=== PATIENT | male | born 1975 ===

== ENCOUNTER 2017-10-28 10:26 | Inpatient (IN) | payer MEDICAID ==
[2017-10-28] MEDS ORDERED: Sodium Chloride 0.9% 1,000 ML ONE (11:13)
[2017-10-28] MEDS ORDERED: Sodium Chloride 0.9% 1,000 ML IV ONE ×2 (11:17→12:00)
[2017-10-28 11:29] LABS: BASO # 0.1 K/uL (0.0-0.2); BASO % 0.4 % (0.0-2.0); EOS % 0.1 % (0.0-4.0); HEMOGLOBIN 14.2 g/dL (12.0-18.0); LYMPH # 1.6 K/uL (1.0-4.3); LYMPH % 8.4 % (20.0-40.0); MEAN CELL VOLUME 83.6 fL (80.0-94.0); MEAN CORPUSCULAR HEMOGLOBIN 28.3 pg (27.0-31.0); MEAN CORPUSCULAR HGB CONC 33.9 g/dL (33.0-37.0); MEAN PLATELET VOLUME 10.1 fL (7.2-11.7); MONO % 5.5 % (0.0-10.0); NEUT # 16.4 K/uL (1.8-7.0); NEUT % 85.6 % (50.0-75.0); PLATELET COUNT 218 K/uL (130-400); RBC 5.03 Mil/uL (4.40-5.90); RED CELL DISTRIBUTION WIDTH 13.8 % (11.5-14.5); WHITE BLOOD COUNT 19.1 K/uL (4.8-10.8)
[2017-10-28 11:44] LABS: INR 0.8; PROTHROMBIN TIME 9.5 SECONDS (9.7-12.2)
[2017-10-28 11:48] LABS: VENOUS BLOOD GAS BASE EXCESS -2.6 mmol/L (0.0-2.0); VENOUS BLOOD GAS PCO2 46 mmHg (40-60); VENOUS BLOOD GAS PO2 42 mm/Hg (30-55); VENOUS BLOOD PH 7.32 (7.32-7.43)
[2017-10-28 11:54] LABS: LYMPHOCYTE 6 % (20-40); MONOCYTE 7 % (0-10); NEUTROPHIL 87 % (50-75); PLATELET ESTIMATE NORMAL (NORMAL); TOTAL CELLS COUNTED 100
--- NOTE | 2017-10-28 12:32 | C.PDOC ---
History Of Present Illness 42 y/o male, w/PMhx of diarrhea, presents to the ER complaining of abdominal pain, nausea, vomiting,and diarrhea which began in the morning today. Patient states that he was vomiting red and dark brown -colored blood. Patient denies having fever, chills, and other complaints. Time Seen by Provider: 10/28/17 10:46 Chief Complaint (Nursing): GI Problem History Per: Patient History/Exam Limitations: no limitations Onset/Duration Of Symptoms: Days Current Symptoms Are (Timing): Still Present Severity: Moderate Associated Symptoms: Nausea, Vomiting, Diarrhea. denies: Fever, Chills Past Medical History Reviewed: Historical Data, Nursing Documentation, Vital Signs Vital Signs: Last Vital Signs Temp 97.9 F 10/28/17 16:20 Pulse 108 H 10/28/17 16:20 Resp 16 10/28/17 16:20 BP 167/98 H 10/28/17 16:20 Pulse Ox 100 10/28/17 16:28 - Medical History PMH: Anxiety Surgical History: No Surg Hx Family History: States: No Known Family Hx - Social History Hx Alcohol Use: No Hx Substance Use: Yes - Immunization History Hx Tetanus Toxoid Vaccination: No Hx Influenza Vaccination: No Hx Pneumococcal Vaccination: No Review Of Systems Except As Marked, All Systems Reviewed And Found Negative. Gastrointestinal: Positive for: Nausea, Vomiting, Abdominal Pain, Diarrhea Physical Exam - Physical Exam Appears: Non-toxic, No Acute Distress Skin: Normal Color, Warm Head: Atraumatic, Normacephalic Eye(s): bilateral: Normal Inspection Nose: Normal Oral Mucosa: Moist Neck: Supple Chest: Symmetrical Cardiovascular: Rhythm Regular, No Murmur Respiratory: Normal Breath Sounds, No Rales, No Rhonchi, No Wheezing Gastrointestinal/Abdominal: Soft, Tenderness (epigastric tenderness), No Guarding, No Rebound Neurological/Psych: Oriented x3, Normal Speech ED Course And Treatment - Laboratory Results Result Diagrams: 10/28/17 11:25 10/28/17 11:56 ECG Rhythm: Sinus Tachycardia Interpretation Of ECG: Sinus Tachycardia at rate 104bpm. Normal Intervals. Normal [place]. LVH. T-wave inversions at V2-V3. Rate From EC O2 Sat by Pulse Oximetry: 100 (RA) Pulse Ox Interpretation: Normal - Radiology CXR: Interpreted by Me, Viewed By Me CXR Interpretation: Yes: No Acute Disease - CT Scan/US CT-Abd & Pelv. Other Rad Studies (CT/US): Read By Radiologist, Radiology Report Reviewed CT/US Interpretation: PROCEDURE: CT Abdomen and Pelvis with contrast. HISTORY : abd. pain. COMPARISON: None. TECHNIQUE: Contrast dose: 100 mL Visipaque 320. Radiation dose: Total exam DLP = 228.51 mGy-cm. This CT exam was performed using one or more of the following dose reduction techniques: Automated exposure control, adjustment of the mA and/or kV according to patient size, and/or use of iterative reconstruction technique. FINDINGS: LOWER THORAX : Unremarkable. LIVER: Unremarkable. No gross lesion or ductal dilatation. GALLBLADDER AND BILE DUCTS: Unremarkable. PANCREAS: Unremarkable. No gross lesion or ductal dilatation. SPLEEN: Unremarkable. ADRENALS: Unremarkable. No mass. KIDNEYS AND URETERS: Unremarkable. No hydronephrosis. No solid mass. VASCULATURE: Unremarkable. No aortic aneurysm. BOWEL: Mild diffuse circumferential mural thickening of the: Including the rectum. This is consistent with nonspecific colitis. No bowel obstruction. No other abnormal bowel loops are identified. APPENDIX: Not identified. No secondary findings. PERITONEUM: Unremarkable. No free fluid. No free air. LYMPH NODES: Unremarkable. No enlarged lymph nodes. BLADDER: Unremarkable. REPRODUCTIVE: Normal prostate. BONES: No acute fracture. OTHER FINDINGS: None. IMPRESSION : Mild diffuse circumferential mural thickening of the colon consistent with nonspecific colitis. The remainder of the examination is unremarkable. Medical Decision Making Medical Decision Making: Plan: --Labs --CXR --CT-Abd & Pelv. --Tylenol PO --Protonix PO --IV Fluids Updates: Patient has been admitted to Med Surg for hyperglycemia, GI bleed, and colitis. Disposition Discussed With : Aleksandar Harry Counseled Patient/Family Regarding: Studies Performed, Diagnosis - Disposition Disposition: HOSPITALIZED Disposition Time: 16:10 Condition: FAIR - Clinical Impression Clinical Impression: Hyperglycemia, GI bleed, Colitis - Scribe Statement The provider has reviewed the documentation as recorded by the Zackary Moreno Provider Attestation: All medical record entries made by the Aniibe were at my direction and personally dictated by me. I have reviewed the chart and agree that the record accurately reflects my personal performance of the history, physical exam, medical decision making, and the department course for this patient. I have also personally directed, reviewed, and agree with the discharge instructions and disposition.
[2017-10-28 12:50] LABS: ALB/GLOB RATIO 1.2 (1.0-2.1); ALBUMIN 3.4 g/dL (3.5-5.0); ALT/SGPT 41 U/L (21-72); AST/SGOT 43 U/L (17-59); BLOOD UREA NITROGEN 17 mg/dL (9-20); CALCIUM 8.9 mg/dl (8.6-10.4); GFR AFRICAN-AMERICAN > 60; GFR NON-AFRICAN AMERICAN > 60; LIPASE 121 U/L (23-300)
--- NOTE | 2017-10-28 13:04 | RAD ---
PROCEDURE: CHEST RADIOGRAPH, 1 VIEW HISTORY: Abdominal pain. COMPARISON: None available. FINDINGS: LUNGS: Clear. PLEURA: No pneumothorax or pleural fluid seen. CARDIOVASCULAR: Normal. OSSEOUS STRUCTURES: No significant abnormalities. VISUALIZED UPPER ABDOMEN: Normal. OTHER FINDINGS: None. IMPRESSION: No active disease.
[2017-10-28 13:26] LABS: URINE BACTERIA RARE (<OCC); URINE BILIRUBIN NEGATIVE (NEGATIVE); URINE BLOOD 1+ (NEGATIVE); URINE CLARITY Clear (Clear); URINE COLOR Colorless (YELLOW); URINE GLUCOSE (UA) 3+ mg/dL (Normal); URINE LEUKOCYTE ESTERASE NEG Leu/uL (Negative); URINE PROTEIN 3+ mg/dL (NEGATIVE); URINE UROBILINOGEN NORMAL mg/dL (0.2-1.0)
[2017-10-28] MEDS ORDERED: Iodixanol 320 MG/ML 100 ML BOTTLE IV ONE (14:13)
[2017-10-28] MEDS ORDERED: (Novolin R) Insulin Human Regular 100 units/ml vial IV ONE (15:20)
--- NOTE | 2017-10-28 15:29 | CT ---
PROCEDURE: CT Abdomen and Pelvis with contrast HISTORY: abd. pain COMPARISON: None. TECHNIQUE: Contrast dose: 100 mL Visipaque 320 Radiation dose: Total exam DLP = 228.51 mGy-cm. This CT exam was performed using one or more of the following dose reduction techniques: Automated exposure control, adjustment of the mA and/or kV according to patient size, and/or use of iterative reconstruction technique. FINDINGS: LOWER THORAX: Unremarkable. LIVER: Unremarkable. No gross lesion or ductal dilatation. GALLBLADDER AND BILE DUCTS: Unremarkable. PANCREAS: Unremarkable. No gross lesion or ductal dilatation. SPLEEN: Unremarkable. ADRENALS: Unremarkable. No mass. KIDNEYS AND URETERS: Unremarkable. No hydronephrosis. No solid mass. VASCULATURE: Unremarkable. No aortic aneurysm. BOWEL: Mild diffuse circumferential mural thickening of the: Including the rectum. This is consistent with nonspecific colitis. No bowel obstruction. No other abnormal bowel loops are identified. APPENDIX: Not identified. No secondary findings. PERITONEUM: Unremarkable. No free fluid. No free air. LYMPH NODES: Unremarkable. No enlarged lymph nodes. BLADDER: Unremarkable. REPRODUCTIVE: Normal prostate BONES: No acute fracture. OTHER FINDINGS: None. IMPRESSION: Mild diffuse circumferential mural thickening of the colon consistent with nonspecific colitis. The remainder of the examination is unremarkable.
[2017-10-28] MEDS ORDERED: (Novolin R) Insulin Human Regular 100 units/ml vial ONE (15:30)
[2017-10-28] MEDS ORDERED: Ciprofloxacin 400mg/200ml D5W 400 MG/200 ML BAG IVPB STA (16:05)
[2017-10-28] MEDS ORDERED: metroNIDAZOLE IV 500 mg/100 ml 500 MG/100 ML BAG IVPB STA (16:06)
[2017-10-28] MEDS ORDERED: Ciprofloxacin 400mg/200ml D5W 400 MG/200 ML BAG IVPB ONE (16:17)
[2017-10-28] MEDS ORDERED: metroNIDAZOLE IV 500 mg/100 ml 500 MG/100 ML BAG ONE (16:17)
[2017-10-28] MEDS: Sodium Chloride 0.9% 1,000 ML IV SCH (18:45)
[2017-10-28] MEDS ORDERED: Morphine 4 MG/ML VIAL SC PRN (20:43)
[2017-10-28] MEDS ORDERED: Nitroglycerin 2% Ointment Foilpak UD TOP ONE (20:45)
[2017-10-28 21:00] LABS: BLOOD UREA NITROGEN 16 mg/dL (9-20); CALCIUM 8.4 mg/dl (8.6-10.4); GFR AFRICAN-AMERICAN > 60; GFR NON-AFRICAN AMERICAN > 60
[2017-10-28] MEDS ORDERED: (Novolog) Insulin Aspart, Recombinant 100 u/ml 10 ml vial SC STA (21:17)
[2017-10-28] MEDS: metroNIDAZOLE IV 500 mg/100 ml 500 MG/100 ML BAG IVPB SCH (21:19)
[2017-10-28] MEDS ORDERED: (Novolog) Insulin Aspart, Recombinant 100 u/ml 10 ml vial SC SCH (22:00)
[2017-10-28] MEDS ORDERED: (Lantus) Insulin Glargine, Recombinant SC SCH (22:00)
--- NOTE | 2017-10-28 23:05 | CP.PCM.HP ---
History of Present Illness - History of Present Illness History of Present Illness: CC: weakness History Of Present Illness 42 y/o male, w/PMhx of insulin dependent diabetes since childhood, presents to the ER complaining of abdominal pain, nausea, vomiting,and diarrhea associated with weakness and lethargy, his complaince to medication is questionable which began in the morning today. Patient states that he was vomiting red and dark brown -colored blood. Patient denies having fever, chills , and other complaints.Pt was found to be in DKA and admitted treatment started Present on Admission - Present on Admission Any Indicators Present on Admission: Yes History of Uncontrolled Diabetes: Yes Review of Systems - Review of Systems Systems not reviewed;Unavailable: Acuity of Condition - Constitutional Constitutional: Fatigue, Lethargy, Weakness - EENT Eyes: absent: As Per HPI, Blind Spots, Blurred Vision, Change in Vision, Decreased Night Vision, Diplopia, Discharge, Dry Eye, Exophthalmos, Floaters, Irritation, Itchy Eyes, Loss of Peripheral Vision, Pain, Photophobia, Requires Corrective Lenses, Sees Flashes, Spots in Vision, Tunnel Vision, Other Visual Disturbances, Loss of Vision, Other Nose/Mouth/Throat: absent: As Per HPI, Epistaxis, Nasal Congestion, Nasal Discharge, Nasal Obstruction, Nasal Trauma, Nose Pain, Post Nasal Drip, Sinus Pain, Sinus Pressure, Bleeding Gums, Change in Voice, Dental Pain, Dry Mouth, Dysphagia, Halitosis, Hoarsness, Lip Swelling, Mouth Lesions, Mouth Pain, Odynophagia, Sore Throat, Throat Swelling, Tongue Swelling, Facial Pain, Neck Pain, Neck Mass, Other - Cardiovascular Cardiovascular: absent: As Per HPI, Acrocyanosis, Chest Pain, Chest Pain at Rest , Chest Pain with Activity, Claudication, Diaphoresis, Dyspnea, Dyspnea on Exertion, Edema, Irregular Heart Rhythm, Pain Radiating to Arm/Neck/Jaw, Leg Edema, Leg Ulcers, Lightheadedness, Orthopnea, Palpitations, Paroxysmal Nocturnal Dyspnea, Pedal Edema, Radiating Pain, Rapid Heart Rate, Slow Heart Rate, Syncope, Other - Respiratory Respiratory: absent: As Per HPI, Cough, Dyspnea, Hemoptysis, Dyspnea on Exertion , Wheezing, Snoring, Stridor, Pain on Inspiration, Chest Congestion, Excessive Mucous Production, Change in Mucous Color, Pain with Coughing, Other - Gastrointestinal Gastrointestinal: Abdominal Pain, Nausea, Vomiting - Genitourinary Genitourinary: absent: As Per HPI, Change in Urinary Stream, Difficulty Urinating, Dysuria, Flank Pain, Hematuria, Pyuria, Nocturia, Urinary Incontinence, Urinary Frequency, Urinary Hesitance, Urinary Urgency, Voiding Freq/Small Amts, Freq UTI, Hx Renal/Bladder Calculi, Hx /Renal Surgery, Bladder Distension, Other - Endocrine Endocrine: Fatigue, Polydipsia, Polyphagia, Polyuria Past Patient History - Past Medical History & Family History Past Medical History?: Yes - Past Social History Smoking Status: Never Smoked - ENDOCRINE/METABOLIC Hx Diabetes Mellitus Type 1: Yes - PSYCHIATRIC Hx Substance Use: Yes (marijuana for joint/bone pain) - SURGICAL HISTORY Hx Surgeries: Yes Hx Amputation: Yes (right index digit partial) Other/Comment: 2005 abscess to mouth, most teeth removed, pt wears full upper dentures and partial bottom dentures - ANESTHESIA Hx Anesthesia: Yes Hx Anesthesia Reactions: No Meds Allergies/Adverse Reactions: Allergies Allergy/AdvReac Type Severity Reaction Status Date / Time No Known Allergies Allergy Verified 10/28/17 10:40 Physical Exam - Constitutional Appears: No Acute Distress - Head Exam Head Exam: ATRAUMATIC, NORMAL INSPECTION, NORMOCEPHALIC - Eye Exam Eye Exam: EOMI, Normal appearance, PERRL Pupil Exam: NORMAL ACCOMODATION, PERRL - Respiratory Exam Respiratory Exam: Clear to Auscultation Bilateral, NORMAL BREATHING PATTERN - Cardiovascular Exam Cardiovascular Exam: REGULAR RHYTHM - GI/Abdominal Exam GI & Abdominal Exam: Normal Bowel Sounds, Soft. absent: Tenderness - Rectal Exam Rectal Exam: Deferred Results - Vital Signs Recent Vital Signs: Last Vital Signs Temp 98.3 F 10/28/17 20:01 Pulse 116 H 10/28/17 20:01 Resp 20 10/28/17 20:01 BP 176/91 H 10/28/17 20:01 Pulse Ox 100 10/28/17 20:01 - Labs Result Diagrams: 10/29/17 13:30 10/29/17 22:05 Labs: Laboratory Results - last 24 hr 10/28/17 10/28/17 10/28/17 11:25 11:32 11:44 WBC 19.1 H RBC 5.03 Hgb 14.2 Hct 42.0 MCV 83.6 MCH 28.3 MCHC 33.9 RDW 13.8 Plt Count 218 MPV 10.1 Neut % (Auto) 85.6 H Lymph % (Auto) 8.4 L [place] % (Auto) 5.5 Eos % (Auto) 0.1 Baso % (Auto) 0.4 Neut # (Auto) 16.4 H Lymph # (Auto) 1.6 [place] # (Auto) 1.0 H Eos # (Auto) 0.0 Baso # (Auto) 0.1 Neutrophils % (Manual) 87 H Lymphocytes % (Manual) 6 L Monocytes % (Manual) 7 Platelet Estimate Normal RBC Morphology Normal PT 9.5 L INR 0.8 APTT 26 pO2 42 VBG pH 7.32 VBG pCO2 46 VBG HCO3 22.2 VBG Total CO2 25.1 VBG O2 Sat (Calc) 81.5 H VBG Base Excess -2.6 L VBG Potassium 4.9 Sodium 140.0 Chloride 100.0 Glucose 505 H* Lactate 4.9 H* Crit Value Called To md Enrique Crit Value Called By Atif aguilar rrt Crit Value Read Back Y Blood Gas Notified Time 1155 Potassium Carbon Dioxide Anion Gap BUN Creatinine Est GFR ( Amer) Est GFR (Non-Af Amer) POC Glucose (mg/dL) Random Glucose Lactic Acid Calcium Magnesium Total Bilirubin AST ALT Alkaline Phosphatase Troponin I Total Protein Albumin Globulin Albumin/Globulin Ratio Lipase Venous Blood Potassium 4.9 Urine Color Urine Clarity Urine pH Ur Specific [place] Urine Protein Urine Glucose (UA) Urine Ketones Urine Blood Urine Nitrate Urine Bilirubin Urine Urobilinogen Ur Leukocyte Esterase Urine WBC (Auto) Urine RBC (Auto) Urine Bacteria Blood Type Antibody Screen 10/28/17 10/28/17 10/28/17 11:56 12:54 13:36 WBC RBC Hgb Hct MCV MCH MCHC RDW Plt Count MPV Neut % (Auto) Lymph % (Auto) [place] % (Auto) Eos % (Auto) Baso % (Auto) Neut # (Auto) Lymph # (Auto) [place] # (Auto) Eos # (Auto) Baso # (Auto) Neutrophils % (Manual) Lymphocytes % (Manual) Monocytes % (Manual) Platelet Estimate RBC Morphology PT INR APTT pO2 VBG pH VBG pCO2 VBG HCO3 VBG Total CO2 VBG O2 Sat (Calc) VBG Base Excess VBG Potassium Sodium 146 Chloride 100 Glucose Lactate Crit Value Called To Crit Value Called By Crit Value Read Back Blood Gas Notified Time Potassium 4.0 Carbon Dioxide 21 L Anion Gap 30 H BUN 17 Creatinine 0.8 Est GFR ( Amer) > 60 Est GFR (Non-Af Amer) > 60 POC Glucose (mg/dL) Random Glucose 471 H* Lactic Acid 1.7 Calcium 8.9 Magnesium 1.8 Total Bilirubin 0.7 AST 43 ALT 41 Alkaline Phosphatase 90 Troponin I < 0.0120 Total Protein 6.2 L Albumin 3.4 L Globulin 2.8 Albumin/Globulin Ratio 1.2 Lipase 121 Venous Blood Potassium Urine Color Colorless Urine Clarity Clear Urine pH 6.0 Ur Specific [place] 1.025 Urine Protein 3+ H Urine Glucose (UA) 3+ H Urine Ketones 2+ H Urine Blood 1+ H Urine Nitrate Negative Urine Bilirubin Negative Urine Urobilinogen Normal Ur Leukocyte Esterase Neg Urine WBC (Auto) < 1 Urine RBC (Auto) 3 Urine Bacteria Rare Blood Type Antibody Screen 10/28/17 10/28/17 10/28/17 14:25 16:24 16:34 WBC RBC Hgb Hct MCV MCH MCHC RDW Plt Count MPV Neut % (Auto) Lymph % (Auto) [place] % (Auto) Eos % (Auto) Baso % (Auto) Neut # (Auto) Lymph # (Auto) [place] # (Auto) Eos # (Auto) Baso # (Auto) Neutrophils % (Manual) Lymphocytes % (Manual) Monocytes % (Manual) Platelet Estimate RBC Morphology PT INR APTT pO2 VBG pH VBG pCO2 VBG HCO3 VBG Total CO2 VBG O2 Sat (Calc) VBG Base Excess VBG Potassium Sodium Chloride Glucose Lactate Crit Value Called To Crit Value Called By Crit Value Read Back Blood Gas Notified Time Potassium Carbon Dioxide Anion Gap BUN Creatinine Est GFR ( Amer) Est GFR (Non-Af Amer) POC Glucose (mg/dL) 375 H 325 H Random Glucose Lactic Acid Calcium Magnesium Total Bilirubin AST ALT Alkaline Phosphatase Troponin I Total Protein Albumin Globulin Albumin/Globulin Ratio Lipase Venous Blood Potassium Urine Color Urine Clarity Urine pH Ur Specific [place] Urine Protein Urine Glucose (UA) Urine Ketones Urine Blood Urine Nitrate Urine Bilirubin Urine Urobilinogen Ur Leukocyte Esterase Urine WBC (Auto) Urine RBC (Auto) Urine Bacteria Blood Type O POSITIVE Antibody Screen Negative 10/28/17 10/28/17 20:38 21:35 WBC RBC Hgb Hct MCV MCH MCHC RDW Plt Count MPV Neut % (Auto) Lymph % (Auto) [place] % (Auto) Eos % (Auto) Baso % (Auto) Neut # (Auto) Lymph # (Auto) [place] # (Auto) Eos # (Auto) Baso # (Auto) Neutrophils % (Manual) Lymphocytes % (Manual) Monocytes % (Manual) Platelet Estimate RBC Morphology PT INR APTT pO2 VBG pH VBG pCO2 VBG HCO3 VBG Total CO2 VBG O2 Sat (Calc) VBG Base Excess VBG Potassium Sodium 144 Chloride 104 Glucose Lactate Crit Value Called To Crit Value Called By Crit Value Read Back Blood Gas Notified Time Potassium 4.1 Carbon Dioxide 15 L Anion Gap 30 H BUN 16 Creatinine 0.9 Est GFR ( Amer) > 60 Est GFR (Non-Af Amer) > 60 POC Glucose (mg/dL) 337 H Random Glucose 424 H* Lactic Acid Calcium 8.4 L Magnesium Total Bilirubin AST ALT Alkaline Phosphatase Troponin I Total Protein Albumin Globulin Albumin/Globulin Ratio Lipase Venous Blood Potassium Urine Color Urine Clarity Urine pH Ur Specific [place] Urine Protein Urine Glucose (UA) Urine Ketones Urine Blood Urine Nitrate Urine Bilirubin Urine Urobilinogen Ur Leukocyte Esterase Urine WBC (Auto) Urine RBC (Auto) Urine Bacteria Blood Type Antibody Screen Assessment & Plan (1) DKA (diabetic ketoacidoses) Assessment and Plan: sliding scale insulin repeat labs endocrinology consult Status: Acute (2) Insulin dependent diabetes mellitus Status: Acute (3) Hyperglycemia Status: Acute
[2017-10-29] MEDS ORDERED: Sodium Chloride 0.9% 500 ML IV ONE ×2 (01:19→14:34)
[2017-10-29] MEDS: Sodium Chloride 0.9% 1,000 ML IV SCH ×2 (04:45→05:39)
[2017-10-29] MEDS: metroNIDAZOLE IV 500 mg/100 ml 500 MG/100 ML BAG IVPB SCH ×4 (05:33→21:32)
[2017-10-29] MEDS: (Novolog) Insulin Aspart, Recombinant 100 u/ml 10 ml vial SC SCH ×2 (08:06→12:46)
[2017-10-29] MEDS ORDERED: (Lantus) Insulin Glargine, Recombinant SC SCH (10:00)
[2017-10-29] MEDS ORDERED: Lactated Ringer's 1,000 ML IV ONE (11:05)
[2017-10-29] MEDS ORDERED: Propofol 10 mg/ml Inj (20 ML) ONE (11:09)
[2017-10-29 13:52] LABS: BASO % 0.2 % (0.0-2.0); LYMPH % 7.8 % (20.0-40.0); MEAN CELL VOLUME 84.7 fL (80.0-94.0); MEAN CORPUSCULAR HGB CONC 33.1 g/dL (33.0-37.0); MEAN PLATELET VOLUME 9.9 fL (7.2-11.7); MONO # 0.5 K/uL (0.0-0.8); MONO % 3.8 % (0.0-10.0); NEUT # 11.1 K/uL (1.8-7.0); NEUT % 88.2 % (50.0-75.0); NRBC % 0.1 % (0.0-2.0); PLATELET COUNT 192 K/uL (130-400); RED CELL DISTRIBUTION WIDTH 14.6 % (11.5-14.5); WHITE BLOOD COUNT 12.5 K/uL (4.8-10.8)
[2017-10-29 13:56] LABS: HEMOGLOBIN 11.5 g/dL (12.0-18.0)
[2017-10-29] MEDS ORDERED: (Lantus) Insulin Glargine, Recombinant SC STA (13:57)
[2017-10-29 14:23] LABS: LYMPHOCYTE 7 % (20-40); MONOCYTE 4 % (0-10); NEUTROPHIL 89 % (50-75); PLATELET ESTIMATE NORMAL (NORMAL); TOTAL CELLS COUNTED 100
[2017-10-29 14:30] LABS: ALB/GLOB RATIO 1.2 (1.0-2.1); ALBUMIN 3.2 g/dL (3.5-5.0); ALT/SGPT 29 U/L (21-72); AMYLASE 141 U/L (30-110); AST/SGOT 26 U/L (17-59); BLOOD UREA NITROGEN 21 mg/dL (9-20); GFR AFRICAN-AMERICAN > 60; GFR NON-AFRICAN AMERICAN > 60
[2017-10-29 14:39] LABS: LIPASE 55 U/L (23-300)
[2017-10-29 15:21] LABS: VENOUS BLOOD GAS PCO2 32 mmHg (40-60); VENOUS BLOOD GAS PO2 26 mm/Hg (30-55); VENOUS BLOOD PH 7.27 (7.32-7.43)
--- NOTE | 2017-10-29 15:44 | CP.PCM.CON ---
<Ruth Ann Berry - Last Filed: 10/29/17 16:39> History of Present Illness - History of Present Illness History of Present Illness: ICU consult note: Patient is a 42 year old male with past medical history of gastritits, Type 1 diabetes, anxiety presented to [facility] for coffee ground emesis. Patient states that he woke up at approximately 4am with nausea and vomiting. States that after 2 hours, emesis became bright red which prompted him to come to the ED. Patient was admitted to the floors. Underwent EGD which showed acute gastritis, LA grade C candidiasis esophagitis. While on the floor, patient developed DKA and was transferred to the ICU for further management. At this time patient is without any complaints. Admits to feeling palpitations but attributes this to his anxiety. Denies headaches, dizziness, cp, sob, abdominal pain, urinary symptoms, changes in bowel habits. States that he has multiple stressors in his life. Takes care of his father and brother. 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 Past Patient History - Past Medical History & Family History Past Medical History?: Yes - Past Social History Smoking Status: Never Smoked - ENDOCRINE/METABOLIC Hx Diabetes Mellitus Type 1: Yes - MUSCULOSKELETAL/RHEUMATOLOGICAL Hx Falls: No - PSYCHIATRIC Hx Substance Use: Yes (marijuana for joint/bone pain) - SURGICAL HISTORY Hx Surgeries: Yes Hx Amputation: Yes (right index digit partial) Other/Comment: 2006 abscess to mouth, most teeth removed, pt wears full upper dentures and partial bottom dentures - ANESTHESIA Hx Anesthesia: Yes Hx Anesthesia Reactions: No Meds Allergies/Adverse Reactions: Allergies Allergy/AdvReac Type Severity Reaction Status Date / Time No Known Allergies Allergy Verified 10/28/17 10:40 - Medications Medications: Current Medications Metronidazole (Flagyl) 500 mg in 100 mls @ 100 mls/hr IVPB Q8 [facility] PRN Reason: Protocol Last Admin: 10/29/17 14:43 Dose: Not Given Sodium Chloride (Sodium Chloride 0.9%) 1,000 mls @ 100 mls/hr IV .Q10H [facility] Last Admin: 10/29/17 05:39 Dose: 100 mls/hr Ciprofloxacin (Cipro 400mg/200ml Dsw) 400 mg in 200 mls @ 133 mls/hr IVPB Q12H [facility] PRN Reason: Protocol Insulin Aspart (Novolog) 0 unit SC ACHS [facility] PRN Reason: Protocol Last Admin: 10/29/17 12:46 Dose: 12 unit Insulin Glargine (Lantus) 16 unit SC HS [facility] Last Admin: 10/28/17 21:51 Dose: 14 unit Metoclopramide HCl (Reglan) 5 mg IVP Q6 [facility] Last Admin: 10/29/17 12:30 Dose: 5 mg Morphine Sulfate (Morphine) 2 mg SC Q4 PRN PRN Reason: Pain, moderate (4-7) Last Admin: 10/29/17 06:03 Dose: 2 mg Ondansetron HCl (Zofran Inj) 4 mg IVP Q4H PRN PRN Reason: Nausea/Vomiting Last Admin: 10/28/17 20:59 Dose: 4 mg Pantoprazole Sodium (Protonix Inj) 40 mg IVP DAILY [facility] Last Admin: 10/29/17 13:49 Dose: 40 mg Pneumococcal Polyvalent Vaccine (Pneumovax 23 Vaccine) 0.5 ml IM .ONCE ONE Stop: 10/31/17 10:01 Sertraline HCl (Zoloft) 100 mg PO DAILY [facility] Last Admin: 10/29/17 12:29 Dose: 100 mg Physical Exam - Constitutional Appears: Well, Non-toxic, No Acute Distress - Head Exam Head Exam: ATRAUMATIC, NORMAL INSPECTION, NORMOCEPHALIC - Eye Exam Eye Exam: EOMI, Normal appearance Pupil Exam: NORMAL ACCOMODATION - ENT Exam ENT Exam: Mucous Membranes Moist - Respiratory Exam Respiratory Exam: Clear to Auscultation Bilateral, NORMAL BREATHING PATTERN. absent: Rales, Rhonchi, Wheezes - Cardiovascular Exam Cardiovascular Exam: Tachycardia, +S1, +S2 - GI/Abdominal Exam GI & Abdominal Exam: Normal Bowel Sounds, Soft. absent: Guarding, Rebound, Rigid, Tenderness - Extremities Exam Extremities exam: Positive for: normal inspection - Back Exam Back exam: NORMAL INSPECTION - Neurological Exam Neurological exam: Alert, CN II-XII Intact, Oriented x3 - Psychiatric Exam Psychiatric exam: Normal Affect, Normal Mood - Skin Skin Exam: Dry, Normal Color, Warm Results - Vital Signs Recent Vital Signs: Last Vital Signs Temp 97.7 F 10/29/17 11:39 Pulse 117 H 10/29/17 11:54 Resp 18 10/29/17 11:54 BP 142/85 10/29/17 11:54 Pulse Ox 99 10/29/17 11:54 - Labs Result Diagrams: 10/29/17 13:30 10/29/17 13:30 Labs: Laboratory Results - last 24 hr 10/28/17 10/28/17 10/28/17 10:34 10:35 16:24 WBC RBC Hgb Hct MCV MCH MCHC RDW Plt Count MPV Neut % (Auto) Lymph % (Auto) [place] % (Auto) Eos % (Auto) Baso % (Auto) Neut # (Auto) Lymph # (Auto) [place] # (Auto) Eos # (Auto) Baso # (Auto) Neutrophils % (Manual) Lymphocytes % (Manual) Monocytes % (Manual) Platelet Estimate RBC Morphology pO2 VBG pH VBG pCO2 VBG HCO3 VBG Total CO2 VBG O2 Sat (Calc) VBG Base Excess VBG Potassium Glucose Lactate Sodium Potassium Chloride Carbon Dioxide Anion Gap BUN Creatinine Est GFR ( Amer) Est GFR (Non-Af Amer) POC Glucose (mg/dL) 462 H* 444 H* 325 H Random Glucose Calcium Total Bilirubin AST ALT Alkaline Phosphatase Total Protein Albumin Globulin Albumin/Globulin Ratio Amylase Lipase Venous Blood Potassium Blood Type Antibody Screen 10/28/17 10/28/17 10/28/17 16:34 20:38 21:35 WBC RBC Hgb Hct MCV MCH MCHC RDW Plt Count MPV Neut % (Auto) Lymph % (Auto) [place] % (Auto) Eos % (Auto) Baso % (Auto) Neut # (Auto) Lymph # (Auto) [place] # (Auto) Eos # (Auto) Baso # (Auto) Neutrophils % (Manual) Lymphocytes % (Manual) Monocytes % (Manual) Platelet Estimate RBC Morphology pO2 VBG pH VBG pCO2 VBG HCO3 VBG Total CO2 VBG O2 Sat (Calc) VBG Base Excess VBG Potassium Glucose Lactate Sodium 144 Potassium 4.1 Chloride 104 Carbon Dioxide 15 L Anion Gap 30 H BUN 16 Creatinine 0.9 Est GFR ( Amer) > 60 Est GFR (Non-Af Amer) > 60 POC Glucose (mg/dL) 337 H Random Glucose 424 H* Calcium 8.4 L Total Bilirubin AST ALT Alkaline Phosphatase Total Protein Albumin Globulin Albumin/Globulin Ratio Amylase Lipase Venous Blood Potassium Blood Type O POSITIVE Antibody Screen Negative 10/29/17 10/29/17 10/29/17 02:24 07:22 12:32 WBC RBC Hgb Hct MCV MCH MCHC RDW Plt Count MPV Neut % (Auto) Lymph % (Auto) [place] % (Auto) Eos % (Auto) Baso % (Auto) Neut # (Auto) Lymph # (Auto) [place] # (Auto) Eos # (Auto) Baso # (Auto) Neutrophils % (Manual) Lymphocytes % (Manual) Monocytes % (Manual) Platelet Estimate RBC Morphology pO2 VBG pH VBG pCO2 VBG HCO3 VBG Total CO2 VBG O2 Sat (Calc) VBG Base Excess VBG Potassium Glucose Lactate Sodium Potassium Chloride Carbon Dioxide Anion Gap BUN Creatinine Est GFR ( Amer) Est GFR (Non-Af Amer) POC Glucose (mg/dL) 300 H 363 H 413 H* Random Glucose Calcium Total Bilirubin AST ALT Alkaline Phosphatase Total Protein Albumin Globulin Albumin/Globulin Ratio Amylase Lipase Venous Blood Potassium Blood Type Antibody Screen 10/29/17 10/29/17 10/29/17 13:30 13:30 15:18 WBC 12.5 H RBC 4.10 L Hgb 11.5 L D Hct 34.8 L MCV 84.7 MCH 28.0 MCHC 33.1 RDW 14.6 H Plt Count 192 MPV 9.9 Neut % (Auto) 88.2 H Lymph % (Auto) 7.8 L [place] % (Auto) 3.8 Eos % (Auto) 0.0 Baso % (Auto) 0.2 Neut # (Auto) 11.1 H Lymph # (Auto) 1.0 [place] # (Auto) 0.5 Eos # (Auto) 0.0 Baso # (Auto) 0.0 Neutrophils % (Manual) 89 H Lymphocytes % (Manual) 7 L Monocytes % (Manual) 4 Platelet Estimate Normal RBC Morphology Normal pO2 26 L VBG pH 7.27 L VBG pCO2 32 L VBG HCO3 14.7 VBG Total CO2 15.7 L VBG O2 Sat (Calc) 59.4 VBG Base Excess -11.0 L VBG Potassium 3.8 Glucose 292 H Lactate 1.3 Sodium 146 147.0 Potassium 4.1 Chloride 112 H 113.0 H Carbon Dioxide 10 L* D Anion Gap 28 H BUN 21 H Creatinine 1.2 Est GFR ( Amer) > 60 Est GFR (Non-Af Amer) > 60 POC Glucose (mg/dL) Random Glucose 410 H* Calcium 8.0 L Total Bilirubin 0.3 AST 26 ALT 29 Alkaline Phosphatase 73 Total Protein 5.9 L Albumin 3.2 L Globulin 2.7 Albumin/Globulin Ratio 1.2 Amylase 141 H Lipase 55 Venous Blood Potassium 3.8 Blood Type Antibody Screen Assessment & Plan - Assessment and Plan (Free Text) Assessment: Patient is a 42 year old male with past medical history of Type 1 diabetes mellitus, anxiety, gastritis admitted for abdominal pain and GI bleed. While on the medical floor, patient went into DKA. Transferred to the ICU for further management. -Stable, afebrile -Anion gap 24, Will start insulin drip -IV fluids: NS with Kcl @ 150cc/hr -Accuchecks q1H, Repeat CMP and serum ketones q4H -Diet: NPO at this time -Zofran prn nausea -CT abd/pelvis: mild diffuse circumferential mural thickening of the colon consistent with nonspecific colitis -Continue antibiotics: Cipro and Flagyl -EGD: LA grade C candidiasis esophagitis, small hiatal hernia, acute gastritis that was biopsied -F/U pathology results -GI/DVT ppx: Protonix 40mg IVP daily, SCDs -Plan discussed with Dr Lay <Moody Lay - Last Filed: 10/29/17 16:58> Meds - Medications Medications: Current Medications Metronidazole (Flagyl) 500 mg in 100 mls @ 100 mls/hr IVPB Q8 [facility] PRN Reason: Protocol Last Admin: 10/29/17 14:43 Dose: Not Given Ciprofloxacin (Cipro 400mg/200ml Dsw) 400 mg in 200 mls @ 133 mls/hr IVPB Q12H [facility] PRN Reason: Protocol Last Admin: 10/29/17 16:23 Dose: 133 mls/hr Potassium Chloride 20 meq/ (Sodium Chloride) 1,010 mls @ 150 mls/hr IV .[id number] [facility] Last Admin: 10/29/17 16:22 Dose: 150 mls/hr Insulin Human Regular 100 unit (/ Sodium Chloride) 100 mls @ 6 mls/hr IV .[id number] [facility] PRN Reason: Protocol Last Admin: 10/29/17 16:20 Dose: 3 u/hr, 3 mls/hr Metoclopramide HCl (Reglan) 5 mg IVP Q6 [facility] Last Admin: 10/29/17 12:30 Dose: 5 mg Morphine Sulfate (Morphine) 2 mg SC Q4 PRN PRN Reason: Pain, moderate (4-7) Last Admin: 10/29/17 06:03 Dose: 2 mg Ondansetron HCl (Zofran Inj) 4 mg IVP Q4H PRN PRN Reason: Nausea/Vomiting Last Admin: 10/28/17 20:59 Dose: 4 mg Pantoprazole Sodium (Protonix Inj) 40 mg IVP DAILY [facility] Last Admin: 10/29/17 13:49 Dose: 40 mg Pneumococcal Polyvalent Vaccine (Pneumovax 23 Vaccine) 0.5 ml IM .ONCE ONE Stop: 10/31/17 10:01 Sertraline HCl (Zoloft) 100 mg PO DAILY [facility] Last Admin: 10/29/17 12:29 Dose: 100 mg Results - Vital Signs Recent Vital Signs: Last Vital Signs Temp 98.1 F 10/29/17 16:00 Pulse 118 H 10/29/17 16:00 Resp 15 10/29/17 16:00 BP 151/89 H 10/29/17 15:28 Pulse Ox 100 10/29/17 16:00 - Labs Result Diagrams: 10/29/17 13:30 10/29/17 13:30 Labs: Laboratory Results - last 24 hr 10/28/17 10/28/17 10/28/17 10:34 10:35 16:34 WBC RBC Hgb Hct MCV MCH MCHC RDW Plt Count MPV Neut % (Auto) Lymph % (Auto) [place] % (Auto) Eos % (Auto) Baso % (Auto) Neut # (Auto) Lymph # (Auto) [place] # (Auto) Eos # (Auto) Baso # (Auto) Neutrophils % (Manual) Lymphocytes % (Manual) Monocytes % (Manual) Platelet Estimate RBC Morphology pO2 VBG pH VBG pCO2 VBG HCO3 VBG Total CO2 VBG O2 Sat (Calc) VBG Base Excess VBG Potassium Glucose Lactate Sodium Potassium Chloride Carbon Dioxide Anion Gap BUN Creatinine Est GFR ( Amer) Est GFR (Non-Af Amer) POC Glucose (mg/dL) 462 H* 444 H* Random Glucose Calcium Total Bilirubin AST ALT Alkaline Phosphatase Total Protein Albumin Globulin Albumin/Globulin Ratio Amylase Lipase Venous Blood Potassium Blood Type O POSITIVE Antibody Screen Negative 10/28/17 10/28/17 10/29/17 20:38 21:35 02:24 WBC RBC Hgb Hct MCV MCH MCHC RDW Plt Count MPV Neut % (Auto) Lymph % (Auto) [place] % (Auto) Eos % (Auto) Baso % (Auto) Neut # (Auto) Lymph # (Auto) [place] # (Auto) Eos # (Auto) Baso # (Auto) Neutrophils % (Manual) Lymphocytes % (Manual) Monocytes % (Manual) Platelet Estimate RBC Morphology pO2 VBG pH VBG pCO2 VBG HCO3 VBG Total CO2 VBG O2 Sat (Calc) VBG Base Excess VBG Potassium Glucose Lactate Sodium 144 Potassium 4.1 Chloride 104 Carbon Dioxide 15 L Anion Gap 30 H BUN 16 Creatinine 0.9 Est GFR ( Amer) > 60 Est GFR (Non-Af Amer) > 60 POC Glucose (mg/dL) 337 H 300 H Random Glucose 424 H* Calcium 8.4 L Total Bilirubin AST ALT Alkaline Phosphatase Total Protein Albumin Globulin Albumin/Globulin Ratio Amylase Lipase Venous Blood Potassium Blood Type Antibody Screen 10/29/17 10/29/17 10/29/17 07:22 12:32 13:30 WBC 12.5 H RBC 4.10 L Hgb 11.5 L D Hct 34.8 L MCV 84.7 MCH 28.0 MCHC 33.1 RDW 14.6 H Plt Count 192 MPV 9.9 Neut % (Auto) 88.2 H Lymph % (Auto) 7.8 L [place] % (Auto) 3.8 Eos % (Auto) 0.0 Baso % (Auto) 0.2 Neut # (Auto) 11.1 H Lymph # (Auto) 1.0 [place] # (Auto) 0.5 Eos # (Auto) 0.0 Baso # (Auto) 0.0 Neutrophils % (Manual) 89 H Lymphocytes % (Manual) 7 L Monocytes % (Manual) 4 Platelet Estimate Normal RBC Morphology Normal pO2 VBG pH VBG pCO2 VBG HCO3 VBG Total CO2 VBG O2 Sat (Calc) VBG Base Excess VBG Potassium Glucose Lactate Sodium Potassium Chloride Carbon Dioxide Anion Gap BUN Creatinine Est GFR ( Amer) Est GFR (Non-Af Amer) POC Glucose (mg/dL) 363 H 413 H* Random Glucose Calcium Total Bilirubin AST ALT Alkaline Phosphatase Total Protein Albumin Globulin Albumin/Globulin Ratio Amylase Lipase Venous Blood Potassium Blood Type Antibody Screen 10/29/17 10/29/17 10/29/17 13:30 13:53 15:18 WBC RBC Hgb Hct MCV MCH MCHC RDW Plt Count MPV Neut % (Auto) Lymph % (Auto) [place] % (Auto) Eos % (Auto) Baso % (Auto) Neut # (Auto) Lymph # (Auto) [place] # (Auto) Eos # (Auto) Baso # (Auto) Neutrophils % (Manual) Lymphocytes % (Manual) Monocytes % (Manual) Platelet Estimate RBC Morphology pO2 26 L VBG pH 7.27 L VBG pCO2 32 L VBG HCO3 14.7 VBG Total CO2 15.7 L VBG O2 Sat (Calc) 59.4 VBG Base Excess -11.0 L VBG Potassium 3.8 Glucose 292 H Lactate 1.3 Sodium 146 147.0 Potassium 4.1 Chloride 112 H 113.0 H Carbon Dioxide 10 L* D Anion Gap 28 H BUN 21 H Creatinine 1.2 Est GFR ( Amer) > 60 Est GFR (Non-Af Amer) > 60 POC Glucose (mg/dL) 358 H Random Glucose 410 H* Calcium 8.0 L Total Bilirubin 0.3 AST 26 ALT 29 Alkaline Phosphatase 73 Total Protein 5.9 L Albumin 3.2 L Globulin 2.7 Albumin/Globulin Ratio 1.2 Amylase 141 H Lipase 55 Venous Blood Potassium 3.8 Blood Type Antibody Screen 10/29/17 16:00 WBC RBC Hgb Hct MCV MCH MCHC RDW Plt Count MPV Neut % (Auto) Lymph % (Auto) [place] % (Auto) Eos % (Auto) Baso % (Auto) Neut # (Auto) Lymph # (Auto) [place] # (Auto) Eos # (Auto) Baso # (Auto) Neutrophils % (Manual) Lymphocytes % (Manual) Monocytes % (Manual) Platelet Estimate RBC Morphology pO2 VBG pH VBG pCO2 VBG HCO3 VBG Total CO2 VBG O2 Sat (Calc) VBG Base Excess VBG Potassium Glucose Lactate Sodium Potassium Chloride Carbon Dioxide Anion Gap BUN Creatinine Est GFR ( Amer) Est GFR (Non-Af Amer) POC Glucose (mg/dL) 239 H Random Glucose Calcium Total Bilirubin AST ALT Alkaline Phosphatase Total Protein Albumin Globulin Albumin/Globulin Ratio Amylase Lipase Venous Blood Potassium Blood Type Antibody Screen Attending/Attestation - Attestation I have personally seen and examined this patient.: Yes I have fully participated in the care of the patient.: Yes I have reviewed all pertinent clinical information: Yes Notes (Text): 10/29/17 16:57 Patient seen and examined 42-year-old male with history of diabetes admitted for GI bleed status post EGD with gastritis Transferred to ICU for DKA Started on insulin drip IV fluids Monitor anion gap, glucose and electrolytes
[2017-10-29] MEDS ORDERED: Insulin Human Regular 100 UNIT in Sodium Chloride 0.9% 99 ML IV SCH (16:00)
[2017-10-29] MEDS: Ciprofloxacin 400mg/200ml D5W 400 MG/200 ML BAG IVPB SCH (16:23)
[2017-10-29 18:32] LABS: ALBUMIN 2.9 g/dL (3.5-5.0); ALT/SGPT 38 U/L (21-72); AST/SGOT 26 U/L (17-59); BLOOD UREA NITROGEN 20 mg/dL (9-20); GFR AFRICAN-AMERICAN > 60; GFR NON-AFRICAN AMERICAN > 60; HDL CHOLESTEROL 50 mg/dL (30-70)
[2017-10-29 18:42] LABS: LDL CHOLESTEROL 131 mg/dL (0-129)
[2017-10-29] MEDS: Potassium Ch 20mEq in D5-1/2NS 1,000 ML IV SCH (20:45)
[2017-10-29 22:29] LABS: ALB/GLOB RATIO 1.1 (1.0-2.1); ALBUMIN 3.3 g/dL (3.5-5.0); ALT/SGPT 38 U/L (21-72); AST/SGOT 29 U/L (17-59); BLOOD UREA NITROGEN 19 mg/dL (9-20); CALCIUM 8.2 mg/dl (8.6-10.4); GFR AFRICAN-AMERICAN > 60; GFR NON-AFRICAN AMERICAN > 60
--- NOTE | 2017-10-29 22:51 | CP.PCM.PN ---
Subjective - Date & Time of Evaluation Date of Evaluation: 10/29/17 Time of Evaluation: 18:00 - Subjective Subjective: patient developed DKA and was transferred to the ICU for further management. At this time patient is without any complaints. Admits to feeling palpitations but attributes this to his anxiety. Denies headaches, dizziness, cp, sob, abdominal pain, urinary symptoms, changes in bowel habits. States that he has multiple stressors in his life. Takes care of his father and brother. Objective - Vital Signs/Intake and Output Vital Signs (last 24 hours): Temp Pulse Resp BP Pulse Ox 98.4 F 112 H 21 177/109 H 99 10/29/17 20:00 10/29/17 20:00 10/29/17 20:00 10/29/17 20:00 10/29/17 20:00 Intake and Output: 10/29/17 10/30/17 18:59 06:59 Intake Total 3770 452 Output Total 450 Balance 3770 2 - Medications Medications: Current Medications Metronidazole (Flagyl) 500 mg in 100 mls @ 100 mls/hr IVPB Q8 [facility] PRN Reason: Protocol Last Admin: 10/29/17 21:32 Dose: 100 mls/hr Ciprofloxacin (Cipro 400mg/200ml Dsw) 400 mg in 200 mls @ 133 mls/hr IVPB Q12H [facility] PRN Reason: Protocol Last Admin: 10/29/17 16:23 Dose: 133 mls/hr Insulin Human Regular 100 unit (/ Sodium Chloride) 100 mls @ 6 mls/hr IV .[id number] [facility] PRN Reason: Protocol Last Titration: 10/29/17 18:56 Dose: 0 u/hr, 0 mls/hr Potassium Chloride/Dextrose/Sod Cl (Potassium Chl 20 Meq In D5-1/2ns) 1,000 mls @ 150 mls/hr IV .Q6H40M [facility] Last Admin: 10/29/17 20:45 Dose: 150 mls/hr Metoclopramide HCl (Reglan) 5 mg IVP Q6 [facility] Last Admin: 10/29/17 17:13 Dose: 5 mg Morphine Sulfate (Morphine) 2 mg SC Q4 PRN PRN Reason: Pain, moderate (4-7) Last Admin: 10/29/17 06:03 Dose: 2 mg Ondansetron HCl (Zofran Inj) 4 mg IVP Q4H PRN PRN Reason: Nausea/Vomiting Last Admin: 10/29/17 21:41 Dose: 4 mg Pantoprazole Sodium (Protonix Inj) 40 mg IVP DAILY [facility] Last Admin: 10/29/17 13:49 Dose: 40 mg Pneumococcal Polyvalent Vaccine (Pneumovax 23 Vaccine) 0.5 ml IM .ONCE ONE Stop: 10/31/17 10:01 Sertraline HCl (Zoloft) 100 mg PO DAILY [facility] Last Admin: 10/29/17 12:29 Dose: 100 mg - Labs Labs: 10/29/17 13:30 10/29/17 22:05 PT 9.5 SECONDS (9.7-12.2) L 10/28/17 11:32 INR 0.8 10/28/17 11:32 APTT 26 SECONDS (21-34) 10/28/17 11:32 - Constitutional Appears: No Acute Distress - Head Exam Head Exam: ATRAUMATIC, NORMAL INSPECTION, NORMOCEPHALIC - Eye Exam Eye Exam: EOMI, Normal appearance, PERRL Pupil Exam: NORMAL ACCOMODATION, PERRL - Respiratory Exam Respiratory Exam: Clear to Ausculation Bilateral, NORMAL BREATHING PATTERN - Cardiovascular Exam Cardiovascular Exam: REGULAR RHYTHM, +S1, +S2. absent: Murmur - GI/Abdominal Exam GI & Abdominal Exam: Soft, Normal Bowel Sounds. absent: Tenderness Assessment and Plan (1) DKA (diabetic ketoacidoses) Assessment & Plan: continue monitor anion gap electrolytes insulin drip Endocrinology consult Status: Acute (2) Insulin dependent diabetes mellitus Status: Acute (3) Hyperglycemia Status: Acute
[2017-10-29] MEDS ORDERED: Nitroglycerin 2% Ointment Foilpak UD TOP ONE (23:15)
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
[2017-10-30] MEDS: Potassium Ch 20mEq in D5-1/2NS 1,000 ML IV SCH ×2 (01:14→03:24)
[2017-10-30 02:26] LABS: ALBUMIN 2.6 g/dL (3.5-5.0); ALT/SGPT 34 U/L (21-72); AST/SGOT 26 U/L (17-59); BLOOD UREA NITROGEN 18 mg/dL (9-20); CALCIUM 7.8 mg/dl (8.6-10.4); GFR AFRICAN-AMERICAN > 60; GFR NON-AFRICAN AMERICAN > 60
[2017-10-30] MEDS ORDERED: Potassium Phosphate 30 MMOLE in Dextrose 5% In Water 250 ML IVPB ONE (03:09)
[2017-10-30] MEDS: Ciprofloxacin 400mg/200ml D5W 400 MG/200 ML BAG IVPB SCH (04:28)
[2017-10-30] MEDS: metroNIDAZOLE IV 500 mg/100 ml 500 MG/100 ML BAG IVPB SCH (05:56)
[2017-10-30 07:13] LABS: BASO # 0.1 K/uL (0.0-0.2); BASO % 0.6 % (0.0-2.0); HEMOGLOBIN 11.2 g/dL (12.0-18.0); LYMPH # 1.1 K/uL (1.0-4.3); LYMPH % 9.9 % (20.0-40.0); MEAN CORPUSCULAR HEMOGLOBIN 28.6 pg (27.0-31.0); MEAN CORPUSCULAR HGB CONC 34.1 g/dL (33.0-37.0); MEAN PLATELET VOLUME 9.6 fL (7.2-11.7); MONO # 0.5 K/uL (0.0-0.8); MONO % 5.1 % (0.0-10.0); NEUT % 84.4 % (50.0-75.0); PLATELET COUNT 202 K/uL (130-400); RBC 3.93 Mil/uL (4.40-5.90); RED CELL DISTRIBUTION WIDTH 14.5 % (11.5-14.5); WHITE BLOOD COUNT 10.7 K/uL (4.8-10.8)
[2017-10-30 08:22] LABS: ALBUMIN 2.7 g/dL (3.5-5.0); ALT/SGPT 31 U/L (21-72); AST/SGOT 30 U/L (17-59); BLOOD UREA NITROGEN 15 mg/dL (9-20); CALCIUM 7.6 mg/dl (8.6-10.4); GFR AFRICAN-AMERICAN > 60; GFR NON-AFRICAN AMERICAN > 60
[2017-10-30] MEDS: Sodium Chloride 0.45% 1,000 ML IV SCH ×3 (09:00→21:35)
[2017-10-30 09:04] LABS: ANISOCYTOSIS SLIGHT; BANDS 1 % (0-2); HYPOCHROMIC SLIGHT; LYMPHOCYTE 11 % (20-40); MONOCYTE 4 % (0-10); NEUTROPHIL 84 % (50-75); PLATELET ESTIMATE NORMAL (NORMAL); POIKILOCYTOSIS SLIGHT; TOTAL CELLS COUNTED 100
[2017-10-30] MEDS: Nystatin 100,000 Units/ml Oral Susp 5 ml UD PO SCH ×4 (09:45→21:53)
--- NOTE | 2017-10-30 10:28 | CP.CCUPN ---
<Ruth Ann Berry - Last Filed: 10/30/17 10:37> CCU Subjective - Physician Review Subjective (Free Text): 10/30/17 10:28 Patient seen and examined at bedside. Per nursing no acute events overnight. States that he feels tingling in his left foot occasionally. Has not had a BM in two days, states this is normal. Anion gap closed, will discontinue insulin drip and start clear liquid diet. CCU Objective - Vital Signs / Intake & Output Vital Signs (Last 4 hours): Vital Signs Pulse Resp Pulse Ox 10/30/17 06:56 103 H 17 99 Intake and Output (Last 8hrs): Intake & Output 10/29/17 10/30/17 10/30/17 22:59 06:59 14:59 Intake Total 1612 1640.5 204.5 Output Total 500 400 Balance 1112 1240.5 204.5 Intake: IV 5 5 8 Intake, IV Amount 1607 1635.5 196.5 L hand 300 Left Hand 7 4 R forearm 100 127.5 42.5 Right Forearm 1500 1200 150 left forearm 4 4 Oral 0 0 0 Output: Urine 500 400 Urine, Voided 500 400 Other: # Voids Urine, Voided 0 0 0 # Bowel Movements 0 0 0 - Physical Exam Head: Positive for: Atraumatic, Normocephalic Pupils: Positive for: PERRL Extroacular Muscles: Positive for: EOMI Conjunctiva: Positive for: Normal Mouth: Positive for: Moist Mucous Membranes Respiratory/Chest: Positive for: Clear to Auscultation, Good Air Exchange. Negative for: Respiratory Distress Cardiovascular: Positive for: Normal S1, S2, Tachycardic Abdomen: Positive for: Normal Bowel Sounds. Negative for: Tenderness Upper Extremity: Positive for: Normal Inspection, Other (finger amputation) Neurological: Positive for: GCS=15, CN II-XII Intact, Speech Normal Psychiatric: Positive for: Alert, Oriented x 3 - Medications Active Medications: Active Medications Generic Name Dose Route Start Last Admin Trade Name Freq PRN Reason Stop Dose Admin Ciprofloxacin 500 mg 10/30/17 10:00 10/30/17 09:46 Cipro PO 500 mg BID DAIRO Administration Protocol Sodium Chloride 1,000 mls @ 150 mls/hr 10/30/17 08:15 10/30/17 09:00 Sodium Chloride 0.45% IV 150 mls/hr .[id number] [facility] Administration Insulin Aspart 6 unit 10/30/17 11:30 Novolog SC ACTID [facility] Insulin Glargine 16 unit 10/30/17 22:00 Lantus SC HS [facility] Lisinopril 2.5 mg 10/30/17 10:00 10/30/17 09:46 Zestril PO 2.5 mg DAILY [facility] Administration Metoclopramide HCl 5 mg 10/29/17 00:00 10/30/17 05:56 Reglan IVP 5 mg Q6 [facility] Administration Nystatin 5 ml 10/30/17 10:00 10/30/17 09:45 Nystatin Oral Susp PO 5 ml QID [facility] Administration Ondansetron HCl 4 mg 10/28/17 20:54 10/29/17 21:41 Zofran Inj IVP 4 mg Q4H PRN Administration Nausea/Vomiting Pantoprazole Sodium 40 mg 10/29/17 13:15 10/30/17 09:45 Protonix Inj IVP 40 mg DAILY [facility] Administration Pneumococcal Polyvalent Vaccine 0.5 ml 10/31/17 10:00 Pneumovax 23 Vaccine IM 10/31/17 10:01 .ONCE ONE Rosuvastatin Calcium 2.5 mg 10/30/17 22:00 Crestor PO HS [facility] Sertraline HCl 100 mg 10/29/17 10:00 10/30/17 09:45 Zoloft PO 100 mg DAILY [facility] Administration - Patient Studies Lab Studies: Microbiology Studies 10/28/17 16:30 Blood Culture - Preliminary Blood NO GROWTH AFTER 24 HOURS 10/28/17 16:30 Blood Culture - Preliminary Blood NO GROWTH AFTER 24 HOURS 10/28/17 12:34 Urine Culture - Final Urine No Growth (<1,000 CFU/ML) Lab Studies 10/30/17 10/30/17 10/30/17 Range/Units 09:29 07:54 07:34 WBC (4.8-10.8) K/uL RBC (4.40-5.90) Mil/uL Hgb (12.0-18.0) g/dL Hct (35.0-51.0) % MCV (80.0-94.0) fL MCH (27.0-31.0) pg MCHC (33.0-37.0) g/dL RDW (11.5-14.5) % Plt Count (130-400) K/uL MPV (7.2-11.7) fL Neut % (Auto) (50.0-75.0) % Lymph % (Auto) (20.0-40.0) % [place] % (Auto) (0.0-10.0) % Eos % (Auto) (0.0-4.0) % Baso % (Auto) (0.0-2.0) % Neut # (Auto) (1.8-7.0) K/uL Lymph # (Auto) (1.0-4.3) K/uL [place]on # (Auto) (0.0-0.8) K/uL Eos # (Auto) (0.0-0.7) K/uL Baso # (Auto) (0.0-0.2) K/uL Neutrophils % (Manual) (50-75) % Band Neutrophils % (0-2) % Lymphocytes % (Manual) (20-40) % Monocytes % (Manual) (0-10) % Platelet Estimate (NORMAL) RBC Morphology Hypochromasia (manual) Poikilocytosis (manual Anisocytosis (manual) pO2 (30-55) mm/Hg VBG pH (7.32-7.43) VBG pCO2 (40-60) mmHg VBG HCO3 mmol/L VBG Total CO2 (22-28) mmol/L VBG O2 Sat (Calc) (40-65) % VBG Base Excess (0.0-2.0) mmol/L VBG Potassium (3.6-5.2) mmol/L Glucose (75-110) mg/dl Lactate (0.7-2.1) mmol/L Sodium 149 H (132-148) mmol/L Potassium 3.5 L (3.6-5.2) mmol/L Chloride 115 H (98-107) mmol/L Carbon Dioxide 22 (22-30) mmol/L Anion Gap 15 (10-20) BUN 15 (9-20) mg/dL Creatinine 0.9 (0.8-1.5) mg/dL Est GFR ( Amer) > 60 Est GFR (Non-Af Amer) > 60 POC Glucose (mg/dL) 216 H (65-110) mg/dL Random Glucose 236 H (75-110) mg/dL Hemoglobin A1c 13.7 H (4.2-6.5) % Calcium 7.6 L (8.6-10.4) mg/dl Phosphorus (2.5-4.5) mg/dL Magnesium (1.6-2.3) mg/dL Total Bilirubin 0.4 (0.2-1.3) mg/dL AST 30 (17-59) U/L ALT 31 (21-72) U/L Alkaline Phosphatase 58 (38-126) U/L Total Protein 5.2 L (6.3-8.3) g/dL Albumin 2.7 L (3.5-5.0) g/dL Globulin 2.6 (2.2-3.9) gm/dL Albumin/Globulin Ratio 1.0 (1.0-2.1) Triglycerides (0-149) mg/dL Cholesterol (0-199) mg/dL LDL Cholesterol Direct (0-129) mg/dL HDL Cholesterol (30-70) mg/dL Amylase (30-110) U/L Lipase (23-300) U/L TSH 3rd Generation (0.46-4.68) mIU/L Venous Blood Potassium (3.6-5.2) mmol/L Serum Ketones Small (NEGATIVE) 10/30/17 10/30/17 10/30/17 Range/Units 07:09 05:58 04:15 WBC 10.7 (4.8-10.8) K/uL RBC 3.93 L (4.40-5.90) Mil/uL Hgb 11.2 L (12.0-18.0) g/dL Hct 33.0 L (35.0-51.0) % MCV 84.0 (80.0-94.0) fL MCH 28.6 (27.0-31.0) pg MCHC 34.1 (33.0-37.0) g/dL RDW 14.5 (11.5-14.5) % Plt Count 202 (130-400) K/uL MPV 9.6 (7.2-11.7) fL Neut % (Auto) 84.4 H (50.0-75.0) % Lymph % (Auto) 9.9 L (20.0-40.0) % [place] % (Auto) 5.1 (0.0-10.0) % Eos % (Auto) 0.0 (0.0-4.0) % Baso % (Auto) 0.6 (0.0-2.0) % Neut # (Auto) 9.0 H (1.8-7.0) K/uL Lymph # (Auto) 1.1 (1.0-4.3) K/uL Fallon # (Auto) 0.5 (0.0-0.8) K/uL Eos # (Auto) 0.0 (0.0-0.7) K/uL Baso # (Auto) 0.1 (0.0-0.2) K/uL Neutrophils % (Manual) 84 H (50-75) % Band Neutrophils % 1 (0-2) % Lymphocytes % (Manual) 11 L (20-40) % Monocytes % (Manual) 4 (0-10) % Platelet Estimate Normal (NORMAL) RBC Morphology Hypochromasia (manual) Slight Poikilocytosis (manual Slight Anisocytosis (manual) Slight pO2 (30-55) mm/Hg VBG pH (7.32-7.43) VBG pCO2 (40-60) mmHg VBG HCO3 mmol/L VBG Total CO2 (22-28) mmol/L VBG O2 Sat (Calc) (40-65) % VBG Base Excess (0.0-2.0) mmol/L VBG Potassium (3.6-5.2) mmol/L Glucose (75-110) mg/dl Lactate (0.7-2.1) mmol/L Sodium (132-148) mmol/L Potassium (3.6-5.2) mmol/L Chloride (98-107) mmol/L Carbon Dioxide (22-30) mmol/L Anion Gap (10-20) BUN (9-20) mg/dL Creatinine (0.8-1.5) mg/dL Est GFR ( Amer) Est GFR (Non-Af Amer) POC Glucose (mg/dL) 256 H 143 H (65-110) mg/dL Random Glucose (75-110) mg/dL Hemoglobin A1c (4.2-6.5) % Calcium (8.6-10.4) mg/dl Phosphorus (2.5-4.5) mg/dL Magnesium (1.6-2.3) mg/dL Total Bilirubin (0.2-1.3) mg/dL AST (17-59) U/L ALT (21-72) U/L Alkaline Phosphatase (38-126) U/L Total Protein (6.3-8.3) g/dL Albumin (3.5-5.0) g/dL Globulin (2.2-3.9) gm/dL Albumin/Globulin Ratio (1.0-2.1) Triglycerides (0-149) mg/dL Cholesterol (0-199) mg/dL LDL Cholesterol Direct (0-129) mg/dL HDL Cholesterol (30-70) mg/dL Amylase (30-110) U/L Lipase (23-300) U/L TSH 3rd Generation (0.46-4.68) mIU/L Venous Blood Potassium (3.6-5.2) mmol/L Serum Ketones (NEGATIVE) 10/30/17 10/30/17 10/29/17 Range/Units 02:09 02:07 23:59 WBC (4.8-10.8) K/uL RBC (4.40-5.90) Mil/uL Hgb (12.0-18.0) g/dL Hct (35.0-51.0) % MCV (80.0-94.0) fL MCH (27.0-31.0) pg MCHC (33.0-37.0) g/dL RDW (11.5-14.5) % Plt Count (130-400) K/uL MPV (7.2-11.7) fL Neut % (Auto) (50.0-75.0) % Lymph % (Auto) (20.0-40.0) % [place] % (Auto) (0.0-10.0) % Eos % (Auto) (0.0-4.0) % Baso % (Auto) (0.0-2.0) % Neut # (Auto) (1.8-7.0) K/uL Lymph # (Auto) (1.0-4.3) K/uL Fall[place] # (Auto) (0.0-0.8) K/uL Eos # (Auto) (0.0-0.7) K/uL Baso # (Auto) (0.0-0.2) K/uL Neutrophils % (Manual) (50-75) % Band Neutrophils % (0-2) % Lymphocytes % (Manual) (20-40) % Monocytes % (Manual) (0-10) % Platelet Estimate (NORMAL) RBC Morphology Hypochromasia (manual) Poikilocytosis (manual Anisocytosis (manual) pO2 (30-55) mm/Hg VBG pH (7.32-7.43) VBG pCO2 (40-60) mmHg VBG HCO3 mmol/L VBG Total CO2 (22-28) mmol/L VBG O2 Sat (Calc) (40-65) % VBG Base Excess (0.0-2.0) mmol/L VBG Potassium (3.6-5.2) mmol/L Glucose (75-110) mg/dl Lactate (0.7-2.1) mmol/L Sodium 150 H (132-148) mmol/L Potassium 3.4 L (3.6-5.2) mmol/L Chloride 118 H (98-107) mmol/L Carbon Dioxide 22 (22-30) mmol/L Anion Gap 13 (10-20) BUN 18 (9-20) mg/dL Creatinine 0.9 (0.8-1.5) mg/dL Est GFR ( Amer) > 60 Est GFR (Non-Af Amer) > 60 POC Glucose (mg/dL) 142 H 161 H (65-110) mg/dL Random Glucose 151 H (75-110) mg/dL Hemoglobin A1c (4.2-6.5) % Calcium 7.8 L (8.6-10.4) mg/dl Phosphorus 1.8 L (2.5-4.5) mg/dL Magnesium 2.1 (1.6-2.3) mg/dL Total Bilirubin 0.4 (0.2-1.3) mg/dL AST 26 (17-59) U/L ALT 34 (21-72) U/L Alkaline Phosphatase 56 (38-126) U/L Total Protein 5.2 L (6.3-8.3) g/dL Albumin 2.6 L D (3.5-5.0) g/dL Globulin 2.6 (2.2-3.9) gm/dL Albumin/Globulin Ratio 1.0 (1.0-2.1) Triglycerides (0-149) mg/dL Cholesterol (0-199) mg/dL LDL Cholesterol Direct (0-129) mg/dL HDL Cholesterol (30-70) mg/dL Amylase (30-110) U/L Lipase (23-300) U/L TSH 3rd Generation 1.74 (0.46-4.68) mIU/L Venous Blood Potassium (3.6-5.2) mmol/L Serum Ketones Moderate (NEGATIVE) 10/29/17 10/29/17 10/29/17 Range/Units 22:50 22:05 21:58 WBC (4.8-10.8) K/uL RBC (4.40-5.90) Mil/uL Hgb (12.0-18.0) g/dL Hct (35.0-51.0) % MCV (80.0-94.0) fL MCH (27.0-31.0) pg MCHC (33.0-37.0) g/dL RDW (11.5-14.5) % Plt Count (130-400) K/uL MPV (7.2-11.7) fL Neut % (Auto) (50.0-75.0) % Lymph % (Auto) (20.0-40.0) % [place] % (Auto) (0.0-10.0) % Eos % (Auto) (0.0-4.0) % Baso % (Auto) (0.0-2.0) % Neut # (Auto) (1.8-7.0) K/uL Lymph # (Auto) (1.0-4.3) K/uL [place] # (Auto) (0.0-0.8) K/uL Eos # (Auto) (0.0-0.7) K/uL Baso # (Auto) (0.0-0.2) K/uL Neutrophils % (Manual) (50-75) % Band Neutrophils % (0-2) % Lymphocytes % (Manual) (20-40) % Monocytes % (Manual) (0-10) % Platelet Estimate (NORMAL) RBC Morphology Hypochromasia (manual) Poikilocytosis (manual Anisocytosis (manual) pO2 (30-55) mm/Hg VBG pH (7.32-7.43) VBG pCO2 (40-60) mmHg VBG HCO3 mmol/L VBG Total CO2 (22-28) mmol/L VBG O2 Sat (Calc) (40-65) % VBG Base Excess (0.0-2.0) mmol/L VBG Potassium (3.6-5.2) mmol/L Glucose (75-110) mg/dl Lactate (0.7-2.1) mmol/L Sodium 151 H (132-148) mmol/L Potassium 3.6 (3.6-5.2) mmol/L Chloride 118 H (98-107) mmol/L Carbon Dioxide 18 L (22-30) mmol/L Anion Gap 19 (10-20) BUN 19 (9-20) mg/dL Creatinine 1.0 (0.8-1.5) mg/dL Est GFR ( Amer) > 60 Est GFR (Non-Af Amer) > 60 POC Glucose (mg/dL) 132 H 128 H (65-110) mg/dL Random Glucose 130 H (75-110) mg/dL Hemoglobin A1c (4.2-6.5) % Calcium 8.2 L (8.6-10.4) mg/dl Phosphorus (2.5-4.5) mg/dL Magnesium (1.6-2.3) mg/dL Total Bilirubin 0.6 (0.2-1.3) mg/dL AST 29 (17-59) U/L ALT 38 (21-72) U/L Alkaline Phosphatase 77 (38-126) U/L Total Protein 6.2 L (6.3-8.3) g/dL Albumin 3.3 L (3.5-5.0) g/dL Globulin 2.9 (2.2-3.9) gm/dL Albumin/Globulin Ratio 1.1 (1.0-2.1) Triglycerides (0-149) mg/dL Cholesterol (0-199) mg/dL LDL Cholesterol Direct (0-129) mg/dL HDL Cholesterol (30-70) mg/dL Amylase (30-110) U/L Lipase (23-300) U/L TSH 3rd Generation (0.46-4.68) mIU/L Venous Blood Potassium (3.6-5.2) mmol/L Serum Ketones Small (NEGATIVE) 10/29/17 10/29/17 10/29/17 Range/Units 20:58 20:03 18:52 WBC (4.8-10.8) K/uL RBC (4.40-5.90) Mil/uL Hgb (12.0-18.0) g/dL Hct (35.0-51.0) % MCV (80.0-94.0) fL MCH (27.0-31.0) pg MCHC (33.0-37.0) g/dL RDW (11.5-14.5) % Plt Count (130-400) K/uL MPV (7.2-11.7) fL Neut % (Auto) (50.0-75.0) % Lymph % (Auto) (20.0-40.0) % [place] % (Auto) (0.0-10.0) % Eos % (Auto) (0.0-4.0) % Baso % (Auto) (0.0-2.0) % Neut # (Auto) (1.8-7.0) K/uL Lymph # (Auto) (1.0-4.3) K/uL [place] # (Auto) (0.0-0.8) K/uL Eos # (Auto) (0.0-0.7) K/uL Baso # (Auto) (0.0-0.2) K/uL Neutrophils % (Manual) (50-75) % Band Neutrophils % (0-2) % Lymphocytes % (Manual) (20-40) % Monocytes % (Manual) (0-10) % Platelet Estimate (NORMAL) RBC Morphology Hypochromasia (manual) Poikilocytosis (manual Anisocytosis (manual) pO2 (30-55) mm/Hg VBG pH (7.32-7.43) VBG pCO2 (40-60) mmHg VBG HCO3 mmol/L VBG Total CO2 (22-28) mmol/L VBG O2 Sat (Calc) (40-65) % VBG Base Excess (0.0-2.0) mmol/L VBG Potassium (3.6-5.2) mmol/L Glucose (75-110) mg/dl Lactate (0.7-2.1) mmol/L Sodium (132-148) mmol/L Potassium (3.6-5.2) mmol/L Chloride (98-107) mmol/L Carbon Dioxide (22-30) mmol/L Anion Gap (10-20) BUN (9-20) mg/dL Creatinine (0.8-1.5) mg/dL Est GFR ( Amer) Est GFR (Non-Af Amer) POC Glucose (mg/dL) 117 H 113 H 130 H (65-110) mg/dL Random Glucose (75-110) mg/dL Hemoglobin A1c (4.2-6.5) % Calcium (8.6-10.4) mg/dl Phosphorus (2.5-4.5) mg/dL Magnesium (1.6-2.3) mg/dL Total Bilirubin (0.2-1.3) mg/dL AST (17-59) U/L ALT (21-72) U/L Alkaline Phosphatase (38-126) U/L Total Protein (6.3-8.3) g/dL Albumin (3.5-5.0) g/dL Globulin (2.2-3.9) gm/dL Albumin/Globulin Ratio (1.0-2.1) Triglycerides (0-149) mg/dL Cholesterol (0-199) mg/dL LDL Cholesterol Direct (0-129) mg/dL HDL Cholesterol (30-70) mg/dL Amylase (30-110) U/L Lipase (23-300) U/L TSH 3rd Generation (0.46-4.68) mIU/L Venous Blood Potassium (3.6-5.2) mmol/L Serum Ketones (NEGATIVE) 10/29/17 10/29/17 10/29/17 Range/Units 18:13 18:13 18:00 WBC (4.8-10.8) K/uL RBC (4.40-5.90) Mil/uL Hgb (12.0-18.0) g/dL Hct (35.0-51.0) % MCV (80.0-94.0) fL MCH (27.0-31.0) pg MCHC (33.0-37.0) g/dL RDW (11.5-14.5) % Plt Count (130-400) K/uL MPV (7.2-11.7) fL Neut % (Auto) (50.0-75.0) % Lymph % (Auto) (20.0-40.0) % [place] % (Auto) (0.0-10.0) % Eos % (Auto) (0.0-4.0) % Baso % (Auto) (0.0-2.0) % Neut # (Auto) (1.8-7.0) K/uL Lymph # (Auto) (1.0-4.3) K/uL [place] # (Auto) (0.0-0.8) K/uL Eos # (Auto) (0.0-0.7) K/uL Baso # (Auto) (0.0-0.2) K/uL Neutrophils % (Manual) (50-75) % Band Neutrophils % (0-2) % Lymphocytes % (Manual) (20-40) % Monocytes % (Manual) (0-10) % Platelet Estimate (NORMAL) RBC Morphology Hypochromasia (manual) Poikilocytosis (manual Anisocytosis (manual) pO2 (30-55) mm/Hg VBG pH (7.32-7.43) VBG pCO2 (40-60) mmHg VBG HCO3 mmol/L VBG Total CO2 (22-28) mmol/L VBG O2 Sat (Calc) (40-65) % VBG Base Excess (0.0-2.0) mmol/L VBG Potassium (3.6-5.2) mmol/L Glucose (75-110) mg/dl Lactate (0.7-2.1) mmol/L Sodium 148 (132-148) mmol/L Potassium 3.7 (3.6-5.2) mmol/L Chloride 115 H (98-107) mmol/L Carbon Dioxide 16 L (22-30) mmol/L Anion Gap 20 (10-20) BUN 20 (9-20) mg/dL Creatinine 1.0 (0.8-1.5) mg/dL Est GFR ( Amer) > 60 Est GFR (Non-Af Amer) > 60 POC Glucose (mg/dL) 167 H (65-110) mg/dL Random Glucose 173 H (75-110) mg/dL Hemoglobin A1c 13.8 H (4.2-6.5) % Calcium 8.0 L (8.6-10.4) mg/dl Phosphorus (2.5-4.5) mg/dL Magnesium (1.6-2.3) mg/dL Total Bilirubin 0.5 (0.2-1.3) mg/dL AST 26 (17-59) U/L ALT 38 (21-72) U/L Alkaline Phosphatase 61 (38-126) U/L Total Protein 5.8 L (6.3-8.3) g/dL Albumin 2.9 L (3.5-5.0) g/dL Globulin 2.8 (2.2-3.9) gm/dL Albumin/Globulin Ratio 1.0 (1.0-2.1) Triglycerides 120 (0-149) mg/dL Cholesterol 206 H (0-199) mg/dL LDL Cholesterol Direct 131 H (0-129) mg/dL HDL Cholesterol 50 (30-70) mg/dL Amylase (30-110) U/L Lipase (23-300) U/L TSH 3rd Generation (0.46-4.68) mIU/L Venous Blood Potassium (3.6-5.2) mmol/L Serum Ketones Moderate (NEGATIVE) 10/29/17 10/29/17 10/29/17 Range/Units 17:01 16:00 15:18 WBC (4.8-10.8) K/uL RBC (4.40-5.90) Mil/uL Hgb (12.0-18.0) g/dL Hct (35.0-51.0) % MCV (80.0-94.0) fL MCH (27.0-31.0) pg MCHC (33.0-37.0) g/dL RDW (11.5-14.5) % Plt Count (130-400) K/uL MPV (7.2-11.7) fL Neut % (Auto) (50.0-75.0) % Lymph % (Auto) (20.0-40.0) % [place] % (Auto) (0.0-10.0) % Eos % (Auto) (0.0-4.0) % Baso % (Auto) (0.0-2.0) % Neut # (Auto) (1.8-7.0) K/uL Lymph # (Auto) (1.0-4.3) K/uL [place] # (Auto) (0.0-0.8) K/uL Eos # (Auto) (0.0-0.7) K/uL Baso # (Auto) (0.0-0.2) K/uL Neutrophils % (Manual) (50-75) % Band Neutrophils % (0-2) % Lymphocytes % (Manual) (20-40) % Monocytes % (Manual) (0-10) % Platelet Estimate (NORMAL) RBC Morphology Hypochromasia (manual) Poikilocytosis (manual Anisocytosis (manual) pO2 26 L (30-55) mm/Hg VBG pH 7.27 L (7.32-7.43) VBG pCO2 32 L (40-60) mmHg VBG HCO3 14.7 mmol/L VBG Total CO2 15.7 L (22-28) mmol/L VBG O2 Sat (Calc) 59.4 (40-65) % VBG Base Excess -11.0 L (0.0-2.0) mmol/L VBG Potassium 3.8 (3.6-5.2) mmol/L Glucose 292 H (75-110) mg/dl Lactate 1.3 (0.7-2.1) mmol/L Sodium 147.0 (132-148) mmol/L Potassium (3.6-5.2) mmol/L Chloride 113.0 H (98-107) mmol/L Carbon Dioxide (22-30) mmol/L Anion Gap (10-20) BUN (9-20) mg/dL Creatinine (0.8-1.5) mg/dL Est GFR ( Amer) Est GFR (Non-Af Amer) POC Glucose (mg/dL) 186 H 239 H (65-110) mg/dL Random Glucose (75-110) mg/dL Hemoglobin A1c (4.2-6.5) % Calcium (8.6-10.4) mg/dl Phosphorus (2.5-4.5) mg/dL Magnesium (1.6-2.3) mg/dL Total Bilirubin (0.2-1.3) mg/dL AST (17-59) U/L ALT (21-72) U/L Alkaline Phosphatase (38-126) U/L Total Protein (6.3-8.3) g/dL Albumin (3.5-5.0) g/dL Globulin (2.2-3.9) gm/dL Albumin/Globulin Ratio (1.0-2.1) Triglycerides (0-149) mg/dL Cholesterol (0-199) mg/dL LDL Cholesterol Direct (0-129) mg/dL HDL Cholesterol (30-70) mg/dL Amylase (30-110) U/L Lipase (23-300) U/L TSH 3rd Generation (0.46-4.68) mIU/L Venous Blood Potassium 3.8 (3.6-5.2) mmol/L Serum Ketones (NEGATIVE) 10/29/17 10/29/17 10/29/17 Range/Units 13:53 13:30 13:30 WBC 12.5 H (4.8-10.8) K/uL RBC 4.10 L (4.40-5.90) Mil/uL Hgb 11.5 L D (12.0-18.0) g/dL Hct 34.8 L (35.0-51.0) % MCV 84.7 (80.0-94.0) fL MCH 28.0 (27.0-31.0) pg MCHC 33.1 (33.0-37.0) g/dL RDW 14.6 H (11.5-14.5) % Plt Count 192 (130-400) K/uL MPV 9.9 (7.2-11.7) fL Neut % (Auto) 88.2 H (50.0-75.0) % Lymph % (Auto) 7.8 L (20.0-40.0) % [place] % (Auto) 3.8 (0.0-10.0) % Eos % (Auto) 0.0 (0.0-4.0) % Baso % (Auto) 0.2 (0.0-2.0) % Neut # (Auto) 11.1 H (1.8-7.0) K/uL Lymph # (Auto) 1.0 (1.0-4.3) K/uL [place] # (Auto) 0.5 (0.0-0.8) K/uL Eos # (Auto) 0.0 (0.0-0.7) K/uL Baso # (Auto) 0.0 (0.0-0.2) K/uL Neutrophils % (Manual) 89 H (50-75) % Band Neutrophils % (0-2) % Lymphocytes % (Manual) 7 L (20-40) % Monocytes % (Manual) 4 (0-10) % Platelet Estimate Normal (NORMAL) RBC Morphology Normal Hypochromasia (manual) Poikilocytosis (manual Anisocytosis (manual) pO2 (30-55) mm/Hg VBG pH (7.32-7.43) VBG pCO2 (40-60) mmHg VBG HCO3 mmol/L VBG Total CO2 (22-28) mmol/L VBG O2 Sat (Calc) (40-65) % VBG Base Excess (0.0-2.0) mmol/L VBG Potassium (3.6-5.2) mmol/L Glucose (75-110) mg/dl Lactate (0.7-2.1) mmol/L Sodium 146 (132-148) mmol/L Potassium 4.1 (3.6-5.2) mmol/L Chloride 112 H (98-107) mmol/L Carbon Dioxide 10 L* D (22-30) mmol/L Anion Gap 28 H (10-20) BUN 21 H (9-20) mg/dL Creatinine 1.2 (0.8-1.5) mg/dL Est GFR ( Amer) > 60 Est GFR (Non-Af Amer) > 60 POC Glucose (mg/dL) 358 H (65-110) mg/dL Random Glucose 410 H* (75-110) mg/dL Hemoglobin A1c (4.2-6.5) % Calcium 8.0 L (8.6-10.4) mg/dl Phosphorus (2.5-4.5) mg/dL Magnesium (1.6-2.3) mg/dL Total Bilirubin 0.3 (0.2-1.3) mg/dL AST 26 (17-59) U/L ALT 29 (21-72) U/L Alkaline Phosphatase 73 (38-126) U/L Total Protein 5.9 L (6.3-8.3) g/dL Albumin 3.2 L (3.5-5.0) g/dL Globulin 2.7 (2.2-3.9) gm/dL Albumin/Globulin Ratio 1.2 (1.0-2.1) Triglycerides (0-149) mg/dL Cholesterol (0-199) mg/dL LDL Cholesterol Direct (0-129) mg/dL HDL Cholesterol (30-70) mg/dL Amylase 141 H (30-110) U/L Lipase 55 (23-300) U/L TSH 3rd Generation (0.46-4.68) mIU/L Venous Blood Potassium (3.6-5.2) mmol/L Serum Ketones (NEGATIVE) 10/29/17 Range/Units 12:32 WBC (4.8-10.8) K/uL RBC (4.40-5.90) Mil/uL Hgb (12.0-18.0) g/dL Hct (35.0-51.0) % MCV (80.0-94.0) fL MCH (27.0-31.0) pg MCHC (33.0-37.0) g/dL RDW (11.5-14.5) % Plt Count (130-400) K/uL MPV (7.2-11.7) fL Neut % (Auto) (50.0-75.0) % Lymph % (Auto) (20.0-40.0) % [place] % (Auto) (0.0-10.0) % Eos % (Auto) (0.0-4.0) % Baso % (Auto) (0.0-2.0) % Neut # (Auto) (1.8-7.0) K/uL Lymph # (Auto) (1.0-4.3) K/uL [place] # (Auto) (0.0-0.8) K/uL Eos # (Auto) (0.0-0.7) K/uL Baso # (Auto) (0.0-0.2) K/uL Neutrophils % (Manual) (50-75) % Band Neutrophils % (0-2) % Lymphocytes % (Manual) (20-40) % Monocytes % (Manual) (0-10) % Platelet Estimate (NORMAL) RBC Morphology Hypochromasia (manual) Poikilocytosis (manual Anisocytosis (manual) pO2 (30-55) mm/Hg VBG pH (7.32-7.43) VBG pCO2 (40-60) mmHg VBG HCO3 mmol/L VBG Total CO2 (22-28) mmol/L VBG O2 Sat (Calc) (40-65) % VBG Base Excess (0.0-2.0) mmol/L VBG Potassium (3.6-5.2) mmol/L Glucose (75-110) mg/dl Lactate (0.7-2.1) mmol/L Sodium (132-148) mmol/L Potassium (3.6-5.2) mmol/L Chloride (98-107) mmol/L Carbon Dioxide (22-30) mmol/L Anion Gap (10-20) BUN (9-20) mg/dL Creatinine (0.8-1.5) mg/dL Est GFR ( Amer) Est GFR (Non-Af Amer) POC Glucose (mg/dL) 413 H* (65-110) mg/dL Random Glucose (75-110) mg/dL Hemoglobin A1c (4.2-6.5) % Calcium (8.6-10.4) mg/dl Phosphorus (2.5-4.5) mg/dL Magnesium (1.6-2.3) mg/dL Total Bilirubin (0.2-1.3) mg/dL AST (17-59) U/L ALT (21-72) U/L Alkaline Phosphatase (38-126) U/L Total Protein (6.3-8.3) g/dL Albumin (3.5-5.0) g/dL Globulin (2.2-3.9) gm/dL Albumin/Globulin Ratio (1.0-2.1) Triglycerides (0-149) mg/dL Cholesterol (0-199) mg/dL LDL Cholesterol Direct (0-129) mg/dL HDL Cholesterol (30-70) mg/dL Amylase (30-110) U/L Lipase (23-300) U/L TSH 3rd Generation (0.46-4.68) mIU/L Venous Blood Potassium (3.6-5.2) mmol/L Serum Ketones (NEGATIVE) Laboratory Results - last 24 hr 10/29/17 10/29/17 10/29/17 12:32 13:30 13:30 WBC 12.5 H RBC 4.10 L Hgb 11.5 L D Hct 34.8 L MCV 84.7 MCH 28.0 MCHC 33.1 RDW 14.6 H Plt Count 192 MPV 9.9 Neut % (Auto) 88.2 H Lymph % (Auto) 7.8 L [place] % (Auto) 3.8 Eos % (Auto) 0.0 Baso % (Auto) 0.2 Neut # (Auto) 11.1 H Lymph # (Auto) 1.0 [place] # (Auto) 0.5 Eos # (Auto) 0.0 Baso # (Auto) 0.0 Neutrophils % (Manual) 89 H Band Neutrophils % Lymphocytes % (Manual) 7 L Monocytes % (Manual) 4 Platelet Estimate Normal RBC Morphology Normal Hypochromasia (manual) Poikilocytosis (manual Anisocytosis (manual) pO2 VBG pH VBG pCO2 VBG HCO3 VBG Total CO2 VBG O2 Sat (Calc) VBG Base Excess VBG Potassium Glucose Lactate Sodium 146 Potassium 4.1 Chloride 112 H Carbon Dioxide 10 L* D Anion Gap 28 H BUN 21 H Creatinine 1.2 Est GFR ( Amer) > 60 Est GFR (Non-Af Amer) > 60 POC Glucose (mg/dL) 413 H* Random Glucose 410 H* Hemoglobin A1c Calcium 8.0 L Phosphorus Magnesium Total Bilirubin 0.3 AST 26 ALT 29 Alkaline Phosphatase 73 Total Protein 5.9 L Albumin 3.2 L Globulin 2.7 Albumin/Globulin Ratio 1.2 Triglycerides Cholesterol LDL Cholesterol Direct HDL Cholesterol Amylase 141 H Lipase 55 TSH 3rd Generation Venous Blood Potassium Serum Ketones 10/29/17 10/29/17 10/29/17 13:53 15:18 16:00 WBC RBC Hgb Hct MCV MCH MCHC RDW Plt Count MPV Neut % (Auto) Lymph % (Auto) [place] % (Auto) Eos % (Auto) Baso % (Auto) Neut # (Auto) Lymph # (Auto) [place] # (Auto) Eos # (Auto) Baso # (Auto) Neutrophils % (Manual) Band Neutrophils % Lymphocytes % (Manual) Monocytes % (Manual) Platelet Estimate RBC Morphology Hypochromasia (manual) Poikilocytosis (manual Anisocytosis (manual) pO2 26 L VBG pH 7.27 L VBG pCO2 32 L VBG HCO3 14.7 VBG Total CO2 15.7 L VBG O2 Sat (Calc) 59.4 VBG Base Excess -11.0 L VBG Potassium 3.8 Glucose 292 H Lactate 1.3 Sodium 147.0 Potassium Chloride 113.0 H Carbon Dioxide Anion Gap BUN Creatinine Est GFR ( Amer) Est GFR (Non-Af Amer) POC Glucose (mg/dL) 358 H 239 H Random Glucose Hemoglobin A1c Calcium Phosphorus Magnesium Total Bilirubin AST ALT Alkaline Phosphatase Total Protein Albumin Globulin Albumin/Globulin Ratio Triglycerides Cholesterol LDL Cholesterol Direct HDL Cholesterol Amylase Lipase TSH 3rd Generation Venous Blood Potassium 3.8 Serum Ketones 10/29/17 10/29/17 10/29/17 17:01 18:00 18:13 WBC RBC Hgb Hct MCV MCH MCHC RDW Plt Count MPV Neut % (Auto) Lymph % (Auto) [place] % (Auto) Eos % (Auto) Baso % (Auto) Neut # (Auto) Lymph # (Auto) [place] # (Auto) Eos # (Auto) Baso # (Auto) Neutrophils % (Manual) Band Neutrophils % Lymphocytes % (Manual) Monocytes % (Manual) Platelet Estimate RBC Morphology Hypochromasia (manual) Poikilocytosis (manual Anisocytosis (manual) pO2 VBG pH VBG pCO2 VBG HCO3 VBG Total CO2 VBG O2 Sat (Calc) VBG Base Excess VBG Potassium Glucose Lactate Sodium 148 Potassium 3.7 Chloride 115 H Carbon Dioxide 16 L Anion Gap 20 BUN 20 Creatinine 1.0 Est GFR ( Amer) > 60 Est GFR (Non-Af Amer) > 60 POC Glucose (mg/dL) 186 H 167 H Random Glucose 173 H Hemoglobin A1c Calcium 8.0 L Phosphorus Magnesium Total Bilirubin 0.5 AST 26 ALT 38 Alkaline Phosphatase 61 Total Protein 5.8 L Albumin 2.9 L Globulin 2.8 Albumin/Globulin Ratio 1.0 Triglycerides 120 Cholesterol 206 H LDL Cholesterol Direct 131 H HDL Cholesterol 50 Amylase Lipase TSH 3rd Generation Venous Blood Potassium Serum Ketones Moderate 10/29/17 10/29/17 10/29/17 18:13 18:52 20:03 WBC RBC Hgb Hct MCV MCH MCHC RDW Plt Count MPV Neut % (Auto) Lymph % (Auto) [place] % (Auto) Eos % (Auto) Baso % (Auto) Neut # (Auto) Lymph # (Auto) [place] # (Auto) Eos # (Auto) Baso # (Auto) Neutrophils % (Manual) Band Neutrophils % Lymphocytes % (Manual) Monocytes % (Manual) Platelet Estimate RBC Morphology Hypochromasia (manual) Poikilocytosis (manual Anisocytosis (manual) pO2 VBG pH VBG pCO2 VBG HCO3 VBG Total CO2 VBG O2 Sat (Calc) VBG Base Excess VBG Potassium Glucose Lactate Sodium Potassium Chloride Carbon Dioxide Anion Gap BUN Creatinine Est GFR ( Amer) Est GFR (Non-Af Amer) POC Glucose (mg/dL) 130 H 113 H Random Glucose Hemoglobin A1c 13.8 H Calcium Phosphorus Magnesium Total Bilirubin AST ALT Alkaline Phosphatase Total Protein Albumin Globulin Albumin/Globulin Ratio Triglycerides Cholesterol LDL Cholesterol Direct HDL Cholesterol Amylase Lipase TSH 3rd Generation Venous Blood Potassium Serum Ketones 10/29/17 10/29/17 10/29/17 20:58 21:58 22:05 WBC RBC Hgb Hct MCV MCH MCHC RDW Plt Count MPV Neut % (Auto) Lymph % (Auto) [place] % (Auto) Eos % (Auto) Baso % (Auto) Neut # (Auto) Lymph # (Auto) [place] # (Auto) Eos # (Auto) Baso # (Auto) Neutrophils % (Manual) Band Neutrophils % Lymphocytes % (Manual) Monocytes % (Manual) Platelet Estimate RBC Morphology Hypochromasia (manual) Poikilocytosis (manual Anisocytosis (manual) pO2 VBG pH VBG pCO2 VBG HCO3 VBG Total CO2 VBG O2 Sat (Calc) VBG Base Excess VBG Potassium Glucose Lactate Sodium 151 H Potassium 3.6 Chloride 118 H Carbon Dioxide 18 L Anion Gap 19 BUN 19 Creatinine 1.0 Est GFR ( Amer) > 60 Est GFR (Non-Af Amer) > 60 POC Glucose (mg/dL) 117 H 128 H Random Glucose 130 H Hemoglobin A1c Calcium 8.2 L Phosphorus Magnesium Total Bilirubin 0.6 AST 29 ALT 38 Alkaline Phosphatase 77 Total Protein 6.2 L Albumin 3.3 L Globulin 2.9 Albumin/Globulin Ratio 1.1 Triglycerides Cholesterol LDL Cholesterol Direct HDL Cholesterol Amylase Lipase TSH 3rd Generation Venous Blood Potassium Serum Ketones Small 10/29/17 10/29/17 10/30/17 22:50 23:59 02:07 WBC RBC Hgb Hct MCV MCH MCHC RDW Plt Count MPV Neut % (Auto) Lymph % (Auto) [place] % (Auto) Eos % (Auto) Baso % (Auto) Neut # (Auto) Lymph # (Auto) [place] # (Auto) Eos # (Auto) Baso # (Auto) Neutrophils % (Manual) Band Neutrophils % Lymphocytes % (Manual) Monocytes % (Manual) Platelet Estimate RBC Morphology Hypochromasia (manual) Poikilocytosis (manual Anisocytosis (manual) pO2 VBG pH VBG pCO2 VBG HCO3 VBG Total CO2 VBG O2 Sat (Calc) VBG Base Excess VBG Potassium Glucose Lactate Sodium Potassium Chloride Carbon Dioxide Anion Gap BUN Creatinine Est GFR ( Amer) Est GFR (Non-Af Amer) POC Glucose (mg/dL) 132 H 161 H 142 H Random Glucose Hemoglobin A1c Calcium Phosphorus Magnesium Total Bilirubin AST ALT Alkaline Phosphatase Total Protein Albumin Globulin Albumin/Globulin Ratio Triglycerides Cholesterol LDL Cholesterol Direct HDL Cholesterol Amylase Lipase TSH 3rd Generation Venous Blood Potassium Serum Ketones 10/30/17 10/30/17 10/30/17 02:09 04:15 05:58 WBC RBC Hgb Hct MCV MCH MCHC RDW Plt Count MPV Neut % (Auto) Lymph % (Auto) [place] % (Auto) Eos % (Auto) Baso % (Auto) Neut # (Auto) Lymph # (Auto) [place] # (Auto) Eos # (Auto) Baso # (Auto) Neutrophils % (Manual) Band Neutrophils % Lymphocytes % (Manual) Monocytes % (Manual) Platelet Estimate RBC Morphology Hypochromasia (manual) Poikilocytosis (manual Anisocytosis (manual) pO2 VBG pH VBG pCO2 VBG HCO3 VBG Total CO2 VBG O2 Sat (Calc) VBG Base Excess VBG Potassium Glucose Lactate Sodium 150 H Potassium 3.4 L Chloride 118 H Carbon Dioxide 22 Anion Gap 13 BUN 18 Creatinine 0.9 Est GFR ( Amer) > 60 Est GFR (Non-Af Amer) > 60 POC Glucose (mg/dL) 143 H 256 H Random Glucose 151 H Hemoglobin A1c Calcium 7.8 L Phosphorus 1.8 L Magnesium 2.1 Total Bilirubin 0.4 AST 26 ALT 34 Alkaline Phosphatase 56 Total Protein 5.2 L Albumin 2.6 L D Globulin 2.6 Albumin/Globulin Ratio 1.0 Triglycerides Cholesterol LDL Cholesterol Direct HDL Cholesterol Amylase Lipase TSH 3rd Generation 1.74 Venous Blood Potassium Serum Ketones Moderate 10/30/17 10/30/17 10/30/17 07:09 07:34 07:54 WBC 10.7 RBC 3.93 L Hgb 11.2 L Hct 33.0 L MCV 84.0 MCH 28.6 MCHC 34.1 RDW 14.5 Plt Count 202 MPV 9.6 Neut % (Auto) 84.4 H Lymph % (Auto) 9.9 L [place] % (Auto) 5.1 Eos % (Auto) 0.0 Baso % (Auto) 0.6 Neut # (Auto) 9.0 H Lymph # (Auto) 1.1 [place] # (Auto) 0.5 Eos # (Auto) 0.0 Baso # (Auto) 0.1 Neutrophils % (Manual) 84 H Band Neutrophils % 1 Lymphocytes % (Manual) 11 L Monocytes % (Manual) 4 Platelet Estimate Normal RBC Morphology Hypochromasia (manual) Slight Poikilocytosis (manual Slight Anisocytosis (manual) Slight pO2 VBG pH VBG pCO2 VBG HCO3 VBG Total CO2 VBG O2 Sat (Calc) VBG Base Excess VBG Potassium Glucose Lactate Sodium 149 H Potassium 3.5 L Chloride 115 H Carbon Dioxide 22 Anion Gap 15 BUN 15 Creatinine 0.9 Est GFR ( Amer) > 60 Est GFR (Non-Af Amer) > 60 POC Glucose (mg/dL) 216 H Random Glucose 236 H Hemoglobin A1c Calcium 7.6 L Phosphorus Magnesium Total Bilirubin 0.4 AST 30 ALT 31 Alkaline Phosphatase 58 Total Protein 5.2 L Albumin 2.7 L Globulin 2.6 Albumin/Globulin Ratio 1.0 Triglycerides Cholesterol LDL Cholesterol Direct HDL Cholesterol Amylase Lipase TSH 3rd Generation Venous Blood Potassium Serum Ketones Small 10/30/17 09:29 WBC RBC Hgb Hct MCV MCH MCHC RDW Plt Count MPV Neut % (Auto) Lymph % (Auto) [place] % (Auto) Eos % (Auto) Baso % (Auto) Neut # (Auto) Lymph # (Auto) [place] # (Auto) Eos # (Auto) Baso # (Auto) Neutrophils % (Manual) Band Neutrophils % Lymphocytes % (Manual) Monocytes % (Manual) Platelet Estimate RBC Morphology Hypochromasia (manual) Poikilocytosis (manual Anisocytosis (manual) pO2 VBG pH VBG pCO2 VBG HCO3 VBG Total CO2 VBG O2 Sat (Calc) VBG Base Excess VBG Potassium Glucose Lactate Sodium Potassium Chloride Carbon Dioxide Anion Gap BUN Creatinine Est GFR ( Amer) Est GFR (Non-Af Amer) POC Glucose (mg/dL) Random Glucose Hemoglobin A1c 13.7 H Calcium Phosphorus Magnesium Total Bilirubin AST ALT Alkaline Phosphatase Total Protein Albumin Globulin Albumin/Globulin Ratio Triglycerides Cholesterol LDL Cholesterol Direct HDL Cholesterol Amylase Lipase TSH 3rd Generation Venous Blood Potassium Serum Ketones Fingerstick Blood Sugar Results: 256 Critical Care Progress Note - Nutrition Nutrition: Nutrition Category Date Time Status Liquid Diet [DIET] Diets 10/30/17 Breakfast Active Assessment/Plan - Assessment and Plan (Free Text) Assessment: Patient is a 42 year old male with past medical history of Type 1 diabetes mellitus, anxiety, gastritis admitted for abdominal pain and GI bleed. While on the medical floor, patient went into DKA. Transferred to the ICU for further management. -Stable, afebrile -Anion gap 10 this morning -Will discontinue insulin drip -IV fluids: 1/2 NS @ 150cc/hr -Patient with diabetic retinopathy and neuropathy -Lantus 16 units HS, Novolog 6 units ACTID -Started Lisinopril 2.5mg PO daily, Crestor 2.5mg PO daily -Diet: Clear liquid (bland, no sugar) -Zofran prn nausea -CT abd/pelvis: mild diffuse circumferential mural thickening of the colon consistent with nonspecific colitis -Continue antibiotics: Cipro 500mg PO Q12H, Nystatin 5ml PO QID -EGD: LA grade C candidiasis esophagitis, small hiatal hernia, acute gastritis that was biopsied -F/U pathology results -Zoloft 100mg PO daily -GI/DVT ppx: Protonix 40mg PO daily, SCDs -Plan discussed with Dr Rasmussen <Susana Rasmussen - Last Filed: 10/30/17 10:56> CCU Objective - Vital Signs / Intake & Output Vital Signs (Last 4 hours): Vital Signs Pulse Resp Pulse Ox 10/30/17 06:56 103 H 17 99 Intake and Output (Last 8hrs): Intake & Output 10/29/17 10/30/17 10/30/17 22:59 06:59 14:59 Intake Total 1612 1640.5 204.5 Output Total 500 400 Balance 1112 1240.5 204.5 Intake: IV 5 5 8 Intake, IV Amount 1607 1635.5 196.5 L hand 300 Left Hand 7 4 R forearm 100 127.5 42.5 Right Forearm 1500 1200 150 left forearm 4 4 Oral 0 0 0 Output: Urine 500 400 Urine, Voided 500 400 Other: # Voids Urine, Voided 0 0 0 # Bowel Movements 0 0 0 - Medications Active Medications: Active Medications Generic Name Dose Route Start Last Admin Trade Name Freq PRN Reason Stop Dose Admin Ciprofloxacin 500 mg 10/30/17 10:00 10/30/17 09:46 Cipro PO 500 mg BID [facility] Administration Protocol Sodium Chloride 1,000 mls @ 150 mls/hr 10/30/17 08:15 10/30/17 09:00 Sodium Chloride 0.45% IV 150 mls/hr .[id number] DARIO Administration Insulin Aspart 6 unit 10/30/17 11:30 Novolog SC ACTID [facility] Insulin Glargine 16 unit 10/30/17 22:00 Lantus SC HS [facility] Lisinopril 2.5 mg 10/30/17 10:00 10/30/17 09:46 Zestril PO 2.5 mg DAILY [facility] Administration Metoclopramide HCl 5 mg 10/29/17 00:00 10/30/17 05:56 Reglan IVP 5 mg Q6 [facility] Administration Nystatin 5 ml 10/30/17 10:00 10/30/17 09:45 Nystatin Oral Susp PO 5 ml QID [facility] Administration Ondansetron HCl 4 mg 10/28/17 20:54 10/29/17 21:41 Zofran Inj IVP 4 mg Q4H PRN Administration Nausea/Vomiting Pantoprazole Sodium 40 mg 10/29/17 13:15 10/30/17 09:45 Protonix Inj IVP 40 mg DAILY [facility] Administration Pneumococcal Polyvalent Vaccine 0.5 ml 10/31/17 10:00 Pneumovax 23 Vaccine IM 10/31/17 10:01 .ONCE ONE Rosuvastatin Calcium 2.5 mg 10/30/17 22:00 Crestor PO HS [facility] Sertraline HCl 100 mg 10/29/17 10:00 10/30/17 09:45 Zoloft PO 100 mg DAILY [facility] Administration - Patient Studies Lab Studies: Microbiology Studies 10/28/17 16:30 Blood Culture - Preliminary Blood NO GROWTH AFTER 24 HOURS 10/28/17 16:30 Blood Culture - Preliminary Blood NO GROWTH AFTER 24 HOURS 10/28/17 12:34 Urine Culture - Final Urine No Growth (<1,000 CFU/ML) Lab Studies 10/30/17 10/30/17 10/30/17 Range/Units 09:29 07:54 07:34 WBC (4.8-10.8) K/uL RBC (4.40-5.90) Mil/uL Hgb (12.0-18.0) g/dL Hct (35.0-51.0) % MCV (80.0-94.0) fL MCH (27.0-31.0) pg MCHC (33.0-37.0) g/dL RDW (11.5-14.5) % Plt Count (130-400) K/uL MPV (7.2-11.7) fL Neut % (Auto) (50.0-75.0) % Lymph % (Auto) (20.0-40.0) % [place] % (Auto) (0.0-10.0) % Eos % (Auto) (0.0-4.0) % Baso % (Auto) (0.0-2.0) % Neut # (Auto) (1.8-7.0) K/uL Lymph # (Auto) (1.0-4.3) K/uL [place] # (Auto) (0.0-0.8) K/uL Eos # (Auto) (0.0-0.7) K/uL Baso # (Auto) (0.0-0.2) K/uL Neutrophils % (Manual) (50-75) % Band Neutrophils % (0-2) % Lymphocytes % (Manual) (20-40) % Monocytes % (Manual) (0-10) % Platelet Estimate (NORMAL) RBC Morphology Hypochromasia (manual) Poikilocytosis (manual Anisocytosis (manual) pO2 (30-55) mm/Hg VBG pH (7.32-7.43) VBG pCO2 (40-60) mmHg VBG HCO3 mmol/L VBG Total CO2 (22-28) mmol/L VBG O2 Sat (Calc) (40-65) % VBG Base Excess (0.0-2.0) mmol/L VBG Potassium (3.6-5.2) mmol/L Glucose (75-110) mg/dl Lactate (0.7-2.1) mmol/L Sodium 149 H (132-148) mmol/L Potassium 3.5 L (3.6-5.2) mmol/L Chloride 115 H (98-107) mmol/L Carbon Dioxide 22 (22-30) mmol/L Anion Gap 15 (10-20) BUN 15 (9-20) mg/dL Creatinine 0.9 (0.8-1.5) mg/dL Est GFR ( Amer) > 60 Est GFR (Non-Af Amer) > 60 POC Glucose (mg/dL) 216 H (65-110) mg/dL Random Glucose 236 H (75-110) mg/dL Hemoglobin A1c 13.7 H (4.2-6.5) % Calcium 7.6 L (8.6-10.4) mg/dl Phosphorus (2.5-4.5) mg/dL Magnesium (1.6-2.3) mg/dL Total Bilirubin 0.4 (0.2-1.3) mg/dL AST 30 (17-59) U/L ALT 31 (21-72) U/L Alkaline Phosphatase 58 (38-126) U/L Total Protein 5.2 L (6.3-8.3) g/dL Albumin 2.7 L (3.5-5.0) g/dL Globulin 2.6 (2.2-3.9) gm/dL Albumin/Globulin Ratio 1.0 (1.0-2.1) Triglycerides (0-149) mg/dL Cholesterol (0-199) mg/dL LDL Cholesterol Direct (0-129) mg/dL HDL Cholesterol (30-70) mg/dL Amylase (30-110) U/L Lipase (23-300) U/L TSH 3rd Generation (0.46-4.68) mIU/L Venous Blood Potassium (3.6-5.2) mmol/L Serum Ketones Small (NEGATIVE) 10/30/17 10/30/17 10/30/17 Range/Units 07:09 05:58 04:15 WBC 10.7 (4.8-10.8) K/uL RBC 3.93 L (4.40-5.90) Mil/uL Hgb 11.2 L (12.0-18.0) g/dL Hct 33.0 L (35.0-51.0) % MCV 84.0 (80.0-94.0) fL MCH 28.6 (27.0-31.0) pg MCHC 34.1 (33.0-37.0) g/dL RDW 14.5 (11.5-14.5) % Plt Count 202 (130-400) K/uL MPV 9.6 (7.2-11.7) fL Neut % (Auto) 84.4 H (50.0-75.0) % Lymph % (Auto) 9.9 L (20.0-40.0) % [place] % (Auto) 5.1 (0.0-10.0) % Eos % (Auto) 0.0 (0.0-4.0) % Baso % (Auto) 0.6 (0.0-2.0) % Neut # (Auto) 9.0 H (1.8-7.0) K/uL Lymph # (Auto) 1.1 (1.0-4.3) K/uL [place] # (Auto) 0.5 (0.0-0.8) K/uL Eos # (Auto) 0.0 (0.0-0.7) K/uL Baso # (Auto) 0.1 (0.0-0.2) K/uL Neutrophils % (Manual) 84 H (50-75) % Band Neutrophils % 1 (0-2) % Lymphocytes % (Manual) 11 L (20-40) % Monocytes % (Manual) 4 (0-10) % Platelet Estimate Normal (NORMAL) RBC Morphology Hypochromasia (manual) Slight Poikilocytosis (manual Slight Anisocytosis (manual) Slight pO2 (30-55) mm/Hg VBG pH (7.32-7.43) VBG pCO2 (40-60) mmHg VBG HCO3 mmol/L VBG Total CO2 (22-28) mmol/L VBG O2 Sat (Calc) (40-65) % VBG Base Excess (0.0-2.0) mmol/L VBG Potassium (3.6-5.2) mmol/L Glucose (75-110) mg/dl Lactate (0.7-2.1) mmol/L Sodium (132-148) mmol/L Potassium (3.6-5.2) mmol/L Chloride (98-107) mmol/L Carbon Dioxide (22-30) mmol/L Anion Gap (10-20) BUN (9-20) mg/dL Creatinine (0.8-1.5) mg/dL Est GFR ( Amer) Est GFR (Non-Af Amer) POC Glucose (mg/dL) 256 H 143 H (65-110) mg/dL Random Glucose (75-110) mg/dL Hemoglobin A1c (4.2-6.5) % Calcium (8.6-10.4) mg/dl Phosphorus (2.5-4.5) mg/dL Magnesium (1.6-2.3) mg/dL Total Bilirubin (0.2-1.3) mg/dL AST (17-59) U/L ALT (21-72) U/L Alkaline Phosphatase (38-126) U/L Total Protein (6.3-8.3) g/dL Albumin (3.5-5.0) g/dL Globulin (2.2-3.9) gm/dL Albumin/Globulin Ratio (1.0-2.1) Triglycerides (0-149) mg/dL Cholesterol (0-199) mg/dL LDL Cholesterol Direct (0-129) mg/dL HDL Cholesterol (30-70) mg/dL Amylase (30-110) U/L Lipase (23-300) U/L TSH 3rd Generation (0.46-4.68) mIU/L Venous Blood Potassium (3.6-5.2) mmol/L Serum Ketones (NEGATIVE) 10/30/17 10/30/17 10/29/17 Range/Units 02:09 02:07 23:59 WBC (4.8-10.8) K/uL RBC (4.40-5.90) Mil/uL Hgb (12.0-18.0) g/dL Hct (35.0-51.0) % MCV (80.0-94.0) fL MCH (27.0-31.0) pg MCHC (33.0-37.0) g/dL RDW (11.5-14.5) % Plt Count (130-400) K/uL MPV (7.2-11.7) fL Neut % (Auto) (50.0-75.0) % Lymph % (Auto) (20.0-40.0) % [place] % (Auto) (0.0-10.0) % Eos % (Auto) (0.0-4.0) % Baso % (Auto) (0.0-2.0) % Neut # (Auto) (1.8-7.0) K/uL Lymph # (Auto) (1.0-4.3) K/uL [place] # (Auto) (0.0-0.8) K/uL Eos # (Auto) (0.0-0.7) K/uL Baso # (Auto) (0.0-0.2) K/uL Neutrophils % (Manual) (50-75) % Band Neutrophils % (0-2) % Lymphocytes % (Manual) (20-40) % Monocytes % (Manual) (0-10) % Platelet Estimate (NORMAL) RBC Morphology Hypochromasia (manual) Poikilocytosis (manual Anisocytosis (manual) pO2 (30-55) mm/Hg VBG pH (7.32-7.43) VBG pCO2 (40-60) mmHg VBG HCO3 mmol/L VBG Total CO2 (22-28) mmol/L VBG O2 Sat (Calc) (40-65) % VBG Base Excess (0.0-2.0) mmol/L VBG Potassium (3.6-5.2) mmol/L Glucose (75-110) mg/dl Lactate (0.7-2.1) mmol/L Sodium 150 H (132-148) mmol/L Potassium 3.4 L (3.6-5.2) mmol/L Chloride 118 H (98-107) mmol/L Carbon Dioxide 22 (22-30) mmol/L Anion Gap 13 (10-20) BUN 18 (9-20) mg/dL Creatinine 0.9 (0.8-1.5) mg/dL Est GFR ( Amer) > 60 Est GFR (Non-Af Amer) > 60 POC Glucose (mg/dL) 142 H 161 H (65-110) mg/dL Random Glucose 151 H (75-110) mg/dL Hemoglobin A1c (4.2-6.5) % Calcium 7.8 L (8.6-10.4) mg/dl Phosphorus 1.8 L (2.5-4.5) mg/dL Magnesium 2.1 (1.6-2.3) mg/dL Total Bilirubin 0.4 (0.2-1.3) mg/dL AST 26 (17-59) U/L ALT 34 (21-72) U/L Alkaline Phosphatase 56 (38-126) U/L Total Protein 5.2 L (6.3-8.3) g/dL Albumin 2.6 L D (3.5-5.0) g/dL Globulin 2.6 (2.2-3.9) gm/dL Albumin/Globulin Ratio 1.0 (1.0-2.1) Triglycerides (0-149) mg/dL Cholesterol (0-199) mg/dL LDL Cholesterol Direct (0-129) mg/dL HDL Cholesterol (30-70) mg/dL Amylase (30-110) U/L Lipase (23-300) U/L TSH 3rd Generation 1.74 (0.46-4.68) mIU/L Venous Blood Potassium (3.6-5.2) mmol/L Serum Ketones Moderate (NEGATIVE) 10/29/17 10/29/17 10/29/17 Range/Units 22:50 22:05 21:58 WBC (4.8-10.8) K/uL RBC (4.40-5.90) Mil/uL Hgb (12.0-18.0) g/dL Hct (35.0-51.0) % MCV (80.0-94.0) fL MCH (27.0-31.0) pg MCHC (33.0-37.0) g/dL RDW (11.5-14.5) % Plt Count (130-400) K/uL MPV (7.2-11.7) fL Neut % (Auto) (50.0-75.0) % Lymph % (Auto) (20.0-40.0) % [place] % (Auto) (0.0-10.0) % Eos % (Auto) (0.0-4.0) % Baso % (Auto) (0.0-2.0) % Neut # (Auto) (1.8-7.0) K/uL Lymph # (Auto) (1.0-4.3) K/uL [place] # (Auto) (0.0-0.8) K/uL Eos # (Auto) (0.0-0.7) K/uL Baso # (Auto) (0.0-0.2) K/uL Neutrophils % (Manual) (50-75) % Band Neutrophils % (0-2) % Lymphocytes % (Manual) (20-40) % Monocytes % (Manual) (0-10) % Platelet Estimate (NORMAL) RBC Morphology Hypochromasia (manual) Poikilocytosis (manual Anisocytosis (manual) pO2 (30-55) mm/Hg VBG pH (7.32-7.43) VBG pCO2 (40-60) mmHg VBG HCO3 mmol/L VBG Total CO2 (22-28) mmol/L VBG O2 Sat (Calc) (40-65) % VBG Base Excess (0.0-2.0) mmol/L VBG Potassium (3.6-5.2) mmol/L Glucose (75-110) mg/dl Lactate (0.7-2.1) mmol/L Sodium 151 H (132-148) mmol/L Potassium 3.6 (3.6-5.2) mmol/L Chloride 118 H (98-107) mmol/L Carbon Dioxide 18 L (22-30) mmol/L Anion Gap 19 (10-20) BUN 19 (9-20) mg/dL Creatinine 1.0 (0.8-1.5) mg/dL Est GFR ( Amer) > 60 Est GFR (Non-Af Amer) > 60 POC Glucose (mg/dL) 132 H 128 H (65-110) mg/dL Random Glucose 130 H (75-110) mg/dL Hemoglobin A1c (4.2-6.5) % Calcium 8.2 L (8.6-10.4) mg/dl Phosphorus (2.5-4.5) mg/dL Magnesium (1.6-2.3) mg/dL Total Bilirubin 0.6 (0.2-1.3) mg/dL AST 29 (17-59) U/L ALT 38 (21-72) U/L Alkaline Phosphatase 77 (38-126) U/L Total Protein 6.2 L (6.3-8.3) g/dL Albumin 3.3 L (3.5-5.0) g/dL Globulin 2.9 (2.2-3.9) gm/dL Albumin/Globulin Ratio 1.1 (1.0-2.1) Triglycerides (0-149) mg/dL Cholesterol (0-199) mg/dL LDL Cholesterol Direct (0-129) mg/dL HDL Cholesterol (30-70) mg/dL Amylase (30-110) U/L Lipase (23-300) U/L TSH 3rd Generation (0.46-4.68) mIU/L Venous Blood Potassium (3.6-5.2) mmol/L Serum Ketones Small (NEGATIVE) 10/29/17 10/29/17 10/29/17 Range/Units 20:58 20:03 18:52 WBC (4.8-10.8) K/uL RBC (4.40-5.90) Mil/uL Hgb (12.0-18.0) g/dL Hct (35.0-51.0) % MCV (80.0-94.0) fL MCH (27.0-31.0) pg MCHC (33.0-37.0) g/dL RDW (11.5-14.5) % Plt Count (130-400) K/uL MPV (7.2-11.7) fL Neut % (Auto) (50.0-75.0) % Lymph % (Auto) (20.0-40.0) % [place] % (Auto) (0.0-10.0) % Eos % (Auto) (0.0-4.0) % Baso % (Auto) (0.0-2.0) % Neut # (Auto) (1.8-7.0) K/uL Lymph # (Auto) (1.0-4.3) K/uL [place] # (Auto) (0.0-0.8) K/uL Eos # (Auto) (0.0-0.7) K/uL Baso # (Auto) (0.0-0.2) K/uL Neutrophils % (Manual) (50-75) % Band Neutrophils % (0-2) % Lymphocytes % (Manual) (20-40) % Monocytes % (Manual) (0-10) % Platelet Estimate (NORMAL) RBC Morphology Hypochromasia (manual) Poikilocytosis (manual Anisocytosis (manual) pO2 (30-55) mm/Hg VBG pH (7.32-7.43) VBG pCO2 (40-60) mmHg VBG HCO3 mmol/L VBG Total CO2 (22-28) mmol/L VBG O2 Sat (Calc) (40-65) % VBG Base Excess (0.0-2.0) mmol/L VBG Potassium (3.6-5.2) mmol/L Glucose (75-110) mg/dl Lactate (0.7-2.1) mmol/L Sodium (132-148) mmol/L Potassium (3.6-5.2) mmol/L Chloride (98-107) mmol/L Carbon Dioxide (22-30) mmol/L Anion Gap (10-20) BUN (9-20) mg/dL Creatinine (0.8-1.5) mg/dL Est GFR ( Amer) Est GFR (Non-Af Amer) POC Glucose (mg/dL) 117 H 113 H 130 H (65-110) mg/dL Random Glucose (75-110) mg/dL Hemoglobin A1c (4.2-6.5) % Calcium (8.6-10.4) mg/dl Phosphorus (2.5-4.5) mg/dL Magnesium (1.6-2.3) mg/dL Total Bilirubin (0.2-1.3) mg/dL AST (17-59) U/L ALT (21-72) U/L Alkaline Phosphatase (38-126) U/L Total Protein (6.3-8.3) g/dL Albumin (3.5-5.0) g/dL Globulin (2.2-3.9) gm/dL Albumin/Globulin Ratio (1.0-2.1) Triglycerides (0-149) mg/dL Cholesterol (0-199) mg/dL LDL Cholesterol Direct (0-129) mg/dL HDL Cholesterol (30-70) mg/dL Amylase (30-110) U/L Lipase (23-300) U/L TSH 3rd Generation (0.46-4.68) mIU/L Venous Blood Potassium (3.6-5.2) mmol/L Serum Ketones (NEGATIVE) 10/29/17 10/29/17 10/29/17 Range/Units 18:13 18:13 18:00 WBC (4.8-10.8) K/uL RBC (4.40-5.90) Mil/uL Hgb (12.0-18.0) g/dL Hct (35.0-51.0) % MCV (80.0-94.0) fL MCH (27.0-31.0) pg MCHC (33.0-37.0) g/dL RDW (11.5-14.5) % Plt Count (130-400) K/uL MPV (7.2-11.7) fL Neut % (Auto) (50.0-75.0) % Lymph % (Auto) (20.0-40.0) % [place] % (Auto) (0.0-10.0) % Eos % (Auto) (0.0-4.0) % Baso % (Auto) (0.0-2.0) % Neut # (Auto) (1.8-7.0) K/uL Lymph # (Auto) (1.0-4.3) K/uL [place] # (Auto) (0.0-0.8) K/uL Eos # (Auto) (0.0-0.7) K/uL Baso # (Auto) (0.0-0.2) K/uL Neutrophils % (Manual) (50-75) % Band Neutrophils % (0-2) % Lymphocytes % (Manual) (20-40) % Monocytes % (Manual) (0-10) % Platelet Estimate (NORMAL) RBC Morphology Hypochromasia (manual) Poikilocytosis (manual Anisocytosis (manual) pO2 (30-55) mm/Hg VBG pH (7.32-7.43) VBG pCO2 (40-60) mmHg VBG HCO3 mmol/L VBG Total CO2 (22-28) mmol/L VBG O2 Sat (Calc) (40-65) % VBG Base Excess (0.0-2.0) mmol/L VBG Potassium (3.6-5.2) mmol/L Glucose (75-110) mg/dl Lactate (0.7-2.1) mmol/L Sodium 148 (132-148) mmol/L Potassium 3.7 (3.6-5.2) mmol/L Chloride 115 H (98-107) mmol/L Carbon Dioxide 16 L (22-30) mmol/L Anion Gap 20 (10-20) BUN 20 (9-20) mg/dL Creatinine 1.0 (0.8-1.5) mg/dL Est GFR ( Amer) > 60 Est GFR (Non-Af Amer) > 60 POC Glucose (mg/dL) 167 H (65-110) mg/dL Random Glucose 173 H (75-110) mg/dL Hemoglobin A1c 13.8 H (4.2-6.5) % Calcium 8.0 L (8.6-10.4) mg/dl Phosphorus (2.5-4.5) mg/dL Magnesium (1.6-2.3) mg/dL Total Bilirubin 0.5 (0.2-1.3) mg/dL AST 26 (17-59) U/L ALT 38 (21-72) U/L Alkaline Phosphatase 61 (38-126) U/L Total Protein 5.8 L (6.3-8.3) g/dL Albumin 2.9 L (3.5-5.0) g/dL Globulin 2.8 (2.2-3.9) gm/dL Albumin/Globulin Ratio 1.0 (1.0-2.1) Triglycerides 120 (0-149) mg/dL Cholesterol 206 H (0-199) mg/dL LDL Cholesterol Direct 131 H (0-129) mg/dL HDL Cholesterol 50 (30-70) mg/dL Amylase (30-110) U/L Lipase (23-300) U/L TSH 3rd Generation (0.46-4.68) mIU/L Venous Blood Potassium (3.6-5.2) mmol/L Serum Ketones Moderate (NEGATIVE) 10/29/17 10/29/17 10/29/17 Range/Units 17:01 16:00 15:18 WBC (4.8-10.8) K/uL RBC (4.40-5.90) Mil/uL Hgb (12.0-18.0) g/dL Hct (35.0-51.0) % MCV (80.0-94.0) fL MCH (27.0-31.0) pg MCHC (33.0-37.0) g/dL RDW (11.5-14.5) % Plt Count (130-400) K/uL MPV (7.2-11.7) fL Neut % (Auto) (50.0-75.0) % Lymph % (Auto) (20.0-40.0) % [place] % (Auto) (0.0-10.0) % Eos % (Auto) (0.0-4.0) % Baso % (Auto) (0.0-2.0) % Neut # (Auto) (1.8-7.0) K/uL Lymph # (Auto) (1.0-4.3) K/uL [place] # (Auto) (0.0-0.8) K/uL Eos # (Auto) (0.0-0.7) K/uL Baso # (Auto) (0.0-0.2) K/uL Neutrophils % (Manual) (50-75) % Band Neutrophils % (0-2) % Lymphocytes % (Manual) (20-40) % Monocytes % (Manual) (0-10) % Platelet Estimate (NORMAL) RBC Morphology Hypochromasia (manual) Poikilocytosis (manual Anisocytosis (manual) pO2 26 L (30-55) mm/Hg VBG pH 7.27 L (7.32-7.43) VBG pCO2 32 L (40-60) mmHg VBG HCO3 14.7 mmol/L VBG Total CO2 15.7 L (22-28) mmol/L VBG O2 Sat (Calc) 59.4 (40-65) % VBG Base Excess -11.0 L (0.0-2.0) mmol/L VBG Potassium 3.8 (3.6-5.2) mmol/L Glucose 292 H (75-110) mg/dl Lactate 1.3 (0.7-2.1) mmol/L Sodium 147.0 (132-148) mmol/L Potassium (3.6-5.2) mmol/L Chloride 113.0 H (98-107) mmol/L Carbon Dioxide (22-30) mmol/L Anion Gap (10-20) BUN (9-20) mg/dL Creatinine (0.8-1.5) mg/dL Est GFR ( Amer) Est GFR (Non-Af Amer) POC Glucose (mg/dL) 186 H 239 H (65-110) mg/dL Random Glucose (75-110) mg/dL Hemoglobin A1c (4.2-6.5) % Calcium (8.6-10.4) mg/dl Phosphorus (2.5-4.5) mg/dL Magnesium (1.6-2.3) mg/dL Total Bilirubin (0.2-1.3) mg/dL AST (17-59) U/L ALT (21-72) U/L Alkaline Phosphatase (38-126) U/L Total Protein (6.3-8.3) g/dL Albumin (3.5-5.0) g/dL Globulin (2.2-3.9) gm/dL Albumin/Globulin Ratio (1.0-2.1) Triglycerides (0-149) mg/dL Cholesterol (0-199) mg/dL LDL Cholesterol Direct (0-129) mg/dL HDL Cholesterol (30-70) mg/dL Amylase (30-110) U/L Lipase (23-300) U/L TSH 3rd Generation (0.46-4.68) mIU/L Venous Blood Potassium 3.8 (3.6-5.2) mmol/L Serum Ketones (NEGATIVE) 10/29/17 10/29/17 10/29/17 Range/Units 13:53 13:30 13:30 WBC 12.5 H (4.8-10.8) K/uL RBC 4.10 L (4.40-5.90) Mil/uL Hgb 11.5 L D (12.0-18.0) g/dL Hct 34.8 L (35.0-51.0) % MCV 84.7 (80.0-94.0) fL MCH 28.0 (27.0-31.0) pg MCHC 33.1 (33.0-37.0) g/dL RDW 14.6 H (11.5-14.5) % Plt Count 192 (130-400) K/uL MPV 9.9 (7.2-11.7) fL Neut % (Auto) 88.2 H (50.0-75.0) % Lymph % (Auto) 7.8 L (20.0-40.0) % [place] % (Auto) 3.8 (0.0-10.0) % Eos % (Auto) 0.0 (0.0-4.0) % Baso % (Auto) 0.2 (0.0-2.0) % Neut # (Auto) 11.1 H (1.8-7.0) K/uL Lymph # (Auto) 1.0 (1.0-4.3) K/uL [place] # (Auto) 0.5 (0.0-0.8) K/uL Eos # (Auto) 0.0 (0.0-0.7) K/uL Baso # (Auto) 0.0 (0.0-0.2) K/uL Neutrophils % (Manual) 89 H (50-75) % Band Neutrophils % (0-2) % Lymphocytes % (Manual) 7 L (20-40) % Monocytes % (Manual) 4 (0-10) % Platelet Estimate Normal (NORMAL) RBC Morphology Normal Hypochromasia (manual) Poikilocytosis (manual Anisocytosis (manual) pO2 (30-55) mm/Hg VBG pH (7.32-7.43) VBG pCO2 (40-60) mmHg VBG HCO3 mmol/L VBG Total CO2 (22-28) mmol/L VBG O2 Sat (Calc) (40-65) % VBG Base Excess (0.0-2.0) mmol/L VBG Potassium (3.6-5.2) mmol/L Glucose (75-110) mg/dl Lactate (0.7-2.1) mmol/L Sodium 146 (132-148) mmol/L Potassium 4.1 (3.6-5.2) mmol/L Chloride 112 H (98-107) mmol/L Carbon Dioxide 10 L* D (22-30) mmol/L Anion Gap 28 H (10-20) BUN 21 H (9-20) mg/dL Creatinine 1.2 (0.8-1.5) mg/dL Est GFR ( Amer) > 60 Est GFR (Non-Af Amer) > 60 POC Glucose (mg/dL) 358 H (65-110) mg/dL Random Glucose 410 H* (75-110) mg/dL Hemoglobin A1c (4.2-6.5) % Calcium 8.0 L (8.6-10.4) mg/dl Phosphorus (2.5-4.5) mg/dL Magnesium (1.6-2.3) mg/dL Total Bilirubin 0.3 (0.2-1.3) mg/dL AST 26 (17-59) U/L ALT 29 (21-72) U/L Alkaline Phosphatase 73 (38-126) U/L Total Protein 5.9 L (6.3-8.3) g/dL Albumin 3.2 L (3.5-5.0) g/dL Globulin 2.7 (2.2-3.9) gm/dL Albumin/Globulin Ratio 1.2 (1.0-2.1) Triglycerides (0-149) mg/dL Cholesterol (0-199) mg/dL LDL Cholesterol Direct (0-129) mg/dL HDL Cholesterol (30-70) mg/dL Amylase 141 H (30-110) U/L Lipase 55 (23-300) U/L TSH 3rd Generation (0.46-4.68) mIU/L Venous Blood Potassium (3.6-5.2) mmol/L Serum Ketones (NEGATIVE) 10/29/17 Range/Units 12:32 WBC (4.8-10.8) K/uL RBC (4.40-5.90) Mil/uL Hgb (12.0-18.0) g/dL Hct (35.0-51.0) % MCV (80.0-94.0) fL MCH (27.0-31.0) pg MCHC (33.0-37.0) g/dL RDW (11.5-14.5) % Plt Count (130-400) K/uL MPV (7.2-11.7) fL Neut % (Auto) (50.0-75.0) % Lymph % (Auto) (20.0-40.0) % [place] % (Auto) (0.0-10.0) % Eos % (Auto) (0.0-4.0) % Baso % (Auto) (0.0-2.0) % Neut # (Auto) (1.8-7.0) K/uL Lymph # (Auto) (1.0-4.3) K/uL [place] # (Auto) (0.0-0.8) K/uL Eos # (Auto) (0.0-0.7) K/uL Baso # (Auto) (0.0-0.2) K/uL Neutrophils % (Manual) (50-75) % Band Neutrophils % (0-2) % Lymphocytes % (Manual) (20-40) % Monocytes % (Manual) (0-10) % Platelet Estimate (NORMAL) RBC Morphology Hypochromasia (manual) Poikilocytosis (manual Anisocytosis (manual) pO2 (30-55) mm/Hg VBG pH (7.32-7.43) VBG pCO2 (40-60) mmHg VBG HCO3 mmol/L VBG Total CO2 (22-28) mmol/L VBG O2 Sat (Calc) (40-65) % VBG Base Excess (0.0-2.0) mmol/L VBG Potassium (3.6-5.2) mmol/L Glucose (75-110) mg/dl Lactate (0.7-2.1) mmol/L Sodium (132-148) mmol/L Potassium (3.6-5.2) mmol/L Chloride (98-107) mmol/L Carbon Dioxide (22-30) mmol/L Anion Gap (10-20) BUN (9-20) mg/dL Creatinine (0.8-1.5) mg/dL Est GFR ( Amer) Est GFR (Non-Af Amer) POC Glucose (mg/dL) 413 H* (65-110) mg/dL Random Glucose (75-110) mg/dL Hemoglobin A1c (4.2-6.5) % Calcium (8.6-10.4) mg/dl Phosphorus (2.5-4.5) mg/dL Magnesium (1.6-2.3) mg/dL Total Bilirubin (0.2-1.3) mg/dL AST (17-59) U/L ALT (21-72) U/L Alkaline Phosphatase (38-126) U/L Total Protein (6.3-8.3) g/dL Albumin (3.5-5.0) g/dL Globulin (2.2-3.9) gm/dL Albumin/Globulin Ratio (1.0-2.1) Triglycerides (0-149) mg/dL Cholesterol (0-199) mg/dL LDL Cholesterol Direct (0-129) mg/dL HDL Cholesterol (30-70) mg/dL Amylase (30-110) U/L Lipase (23-300) U/L TSH 3rd Generation (0.46-4.68) mIU/L Venous Blood Potassium (3.6-5.2) mmol/L Serum Ketones (NEGATIVE) Laboratory Results - last 24 hr 10/29/17 10/29/17 10/29/17 12:32 13:30 13:30 WBC 12.5 H RBC 4.10 L Hgb 11.5 L D Hct 34.8 L MCV 84.7 MCH 28.0 MCHC 33.1 RDW 14.6 H Plt Count 192 MPV 9.9 Neut % (Auto) 88.2 H Lymph % (Auto) 7.8 L [place] % (Auto) 3.8 Eos % (Auto) 0.0 Baso % (Auto) 0.2 Neut # (Auto) 11.1 H Lymph # (Auto) 1.0 [place] # (Auto) 0.5 Eos # (Auto) 0.0 Baso # (Auto) 0.0 Neutrophils % (Manual) 89 H Band Neutrophils % Lymphocytes % (Manual) 7 L Monocytes % (Manual) 4 Platelet Estimate Normal RBC Morphology Normal Hypochromasia (manual) Poikilocytosis (manual Anisocytosis (manual) pO2 VBG pH VBG pCO2 VBG HCO3 VBG Total CO2 VBG O2 Sat (Calc) VBG Base Excess VBG Potassium Glucose Lactate Sodium 146 Potassium 4.1 Chloride 112 H Carbon Dioxide 10 L* D Anion Gap 28 H BUN 21 H Creatinine 1.2 Est GFR ( Amer) > 60 Est GFR (Non-Af Amer) > 60 POC Glucose (mg/dL) 413 H* Random Glucose 410 H* Hemoglobin A1c Calcium 8.0 L Phosphorus Magnesium Total Bilirubin 0.3 AST 26 ALT 29 Alkaline Phosphatase 73 Total Protein 5.9 L Albumin 3.2 L Globulin 2.7 Albumin/Globulin Ratio 1.2 Triglycerides Cholesterol LDL Cholesterol Direct HDL Cholesterol Amylase 141 H Lipase 55 TSH 3rd Generation Venous Blood Potassium Serum Ketones 10/29/17 10/29/17 10/29/17 13:53 15:18 16:00 WBC RBC Hgb Hct MCV MCH MCHC RDW Plt Count MPV Neut % (Auto) Lymph % (Auto) [place] % (Auto) Eos % (Auto) Baso % (Auto) Neut # (Auto) Lymph # (Auto) [place] # (Auto) Eos # (Auto) Baso # (Auto) Neutrophils % (Manual) Band Neutrophils % Lymphocytes % (Manual) Monocytes % (Manual) Platelet Estimate RBC Morphology Hypochromasia (manual) Poikilocytosis (manual Anisocytosis (manual) pO2 26 L VBG pH 7.27 L VBG pCO2 32 L VBG HCO3 14.7 VBG Total CO2 15.7 L VBG O2 Sat (Calc) 59.4 VBG Base Excess -11.0 L VBG Potassium 3.8 Glucose 292 H Lactate 1.3 Sodium 147.0 Potassium Chloride 113.0 H Carbon Dioxide Anion Gap BUN Creatinine Est GFR ( Amer) Est GFR (Non-Af Amer) POC Glucose (mg/dL) 358 H 239 H Random Glucose Hemoglobin A1c Calcium Phosphorus Magnesium Total Bilirubin AST ALT Alkaline Phosphatase Total Protein Albumin Globulin Albumin/Globulin Ratio Triglycerides Cholesterol LDL Cholesterol Direct HDL Cholesterol Amylase Lipase TSH 3rd Generation Venous Blood Potassium 3.8 Serum Ketones 10/29/17 10/29/17 10/29/17 17:01 18:00 18:13 WBC RBC Hgb Hct MCV MCH MCHC RDW Plt Count MPV Neut % (Auto) Lymph % (Auto) [place] % (Auto) Eos % (Auto) Baso % (Auto) Neut # (Auto) Lymph # (Auto) [place] # (Auto) Eos # (Auto) Baso # (Auto) Neutrophils % (Manual) Band Neutrophils % Lymphocytes % (Manual) Monocytes % (Manual) Platelet Estimate RBC Morphology Hypochromasia (manual) Poikilocytosis (manual Anisocytosis (manual) pO2 VBG pH VBG pCO2 VBG HCO3 VBG Total CO2 VBG O2 Sat (Calc) VBG Base Excess VBG Potassium Glucose Lactate Sodium 148 Potassium 3.7 Chloride 115 H Carbon Dioxide 16 L Anion Gap 20 BUN 20 Creatinine 1.0 Est GFR ( Amer) > 60 Est GFR (Non-Af Amer) > 60 POC Glucose (mg/dL) 186 H 167 H Random Glucose 173 H Hemoglobin A1c Calcium 8.0 L Phosphorus Magnesium Total Bilirubin 0.5 AST 26 ALT 38 Alkaline Phosphatase 61 Total Protein 5.8 L Albumin 2.9 L Globulin 2.8 Albumin/Globulin Ratio 1.0 Triglycerides 120 Cholesterol 206 H LDL Cholesterol Direct 131 H HDL Cholesterol 50 Amylase Lipase TSH 3rd Generation Venous Blood Potassium Serum Ketones Moderate 10/29/17 10/29/17 10/29/17 18:13 18:52 20:03 WBC RBC Hgb Hct MCV MCH MCHC RDW Plt Count MPV Neut % (Auto) Lymph % (Auto) [place] % (Auto) Eos % (Auto) Baso % (Auto) Neut # (Auto) Lymph # (Auto) [place] # (Auto) Eos # (Auto) Baso # (Auto) Neutrophils % (Manual) Band Neutrophils % Lymphocytes % (Manual) Monocytes % (Manual) Platelet Estimate RBC Morphology Hypochromasia (manual) Poikilocytosis (manual Anisocytosis (manual) pO2 VBG pH VBG pCO2 VBG HCO3 VBG Total CO2 VBG O2 Sat (Calc) VBG Base Excess VBG Potassium Glucose Lactate Sodium Potassium Chloride Carbon Dioxide Anion Gap BUN Creatinine Est GFR ( Amer) Est GFR (Non-Af Amer) POC Glucose (mg/dL) 130 H 113 H Random Glucose Hemoglobin A1c 13.8 H Calcium Phosphorus Magnesium Total Bilirubin AST ALT Alkaline Phosphatase Total Protein Albumin Globulin Albumin/Globulin Ratio Triglycerides Cholesterol LDL Cholesterol Direct HDL Cholesterol Amylase Lipase TSH 3rd Generation Venous Blood Potassium Serum Ketones 10/29/17 10/29/17 10/29/17 20:58 21:58 22:05 WBC RBC Hgb Hct MCV MCH MCHC RDW Plt Count MPV Neut % (Auto) Lymph % (Auto) [place] % (Auto) Eos % (Auto) Baso % (Auto) Neut # (Auto) Lymph # (Auto) [place] # (Auto) Eos # (Auto) Baso # (Auto) Neutrophils % (Manual) Band Neutrophils % Lymphocytes % (Manual) Monocytes % (Manual) Platelet Estimate RBC Morphology Hypochromasia (manual) Poikilocytosis (manual Anisocytosis (manual) pO2 VBG pH VBG pCO2 VBG HCO3 VBG Total CO2 VBG O2 Sat (Calc) VBG Base Excess VBG Potassium Glucose Lactate Sodium 151 H Potassium 3.6 Chloride 118 H Carbon Dioxide 18 L Anion Gap 19 BUN 19 Creatinine 1.0 Est GFR ( Amer) > 60 Est GFR (Non-Af Amer) > 60 POC Glucose (mg/dL) 117 H 128 H Random Glucose 130 H Hemoglobin A1c Calcium 8.2 L Phosphorus Magnesium Total Bilirubin 0.6 AST 29 ALT 38 Alkaline Phosphatase 77 Total Protein 6.2 L Albumin 3.3 L Globulin 2.9 Albumin/Globulin Ratio 1.1 Triglycerides Cholesterol LDL Cholesterol Direct HDL Cholesterol Amylase Lipase TSH 3rd Generation Venous Blood Potassium Serum Ketones Small 10/29/17 10/29/17 10/30/17 22:50 23:59 02:07 WBC RBC Hgb Hct MCV MCH MCHC RDW Plt Count MPV Neut % (Auto) Lymph % (Auto) [place] % (Auto) Eos % (Auto) Baso % (Auto) Neut # (Auto) Lymph # (Auto) [place] # (Auto) Eos # (Auto) Baso # (Auto) Neutrophils % (Manual) Band Neutrophils % Lymphocytes % (Manual) Monocytes % (Manual) Platelet Estimate RBC Morphology Hypochromasia (manual) Poikilocytosis (manual Anisocytosis (manual) pO2 VBG pH VBG pCO2 VBG HCO3 VBG Total CO2 VBG O2 Sat (Calc) VBG Base Excess VBG Potassium Glucose Lactate Sodium Potassium Chloride Carbon Dioxide Anion Gap BUN Creatinine Est GFR ( Amer) Est GFR (Non-Af Amer) POC Glucose (mg/dL) 132 H 161 H 142 H Random Glucose Hemoglobin A1c Calcium Phosphorus Magnesium Total Bilirubin AST ALT Alkaline Phosphatase Total Protein Albumin Globulin Albumin/Globulin Ratio Triglycerides Cholesterol LDL Cholesterol Direct HDL Cholesterol Amylase Lipase TSH 3rd Generation Venous Blood Potassium Serum Ketones 10/30/17 10/30/17 10/30/17 02:09 04:15 05:58 WBC RBC Hgb Hct MCV MCH MCHC RDW Plt Count MPV Neut % (Auto) Lymph % (Auto) [place] % (Auto) Eos % (Auto) Baso % (Auto) Neut # (Auto) Lymph # (Auto) [place] # (Auto) Eos # (Auto) Baso # (Auto) Neutrophils % (Manual) Band Neutrophils % Lymphocytes % (Manual) Monocytes % (Manual) Platelet Estimate RBC Morphology Hypochromasia (manual) Poikilocytosis (manual Anisocytosis (manual) pO2 VBG pH VBG pCO2 VBG HCO3 VBG Total CO2 VBG O2 Sat (Calc) VBG Base Excess VBG Potassium Glucose Lactate Sodium 150 H Potassium 3.4 L Chloride 118 H Carbon Dioxide 22 Anion Gap 13 BUN 18 Creatinine 0.9 Est GFR ( Amer) > 60 Est GFR (Non-Af Amer) > 60 POC Glucose (mg/dL) 143 H 256 H Random Glucose 151 H Hemoglobin A1c Calcium 7.8 L Phosphorus 1.8 L Magnesium 2.1 Total Bilirubin 0.4 AST 26 ALT 34 Alkaline Phosphatase 56 Total Protein 5.2 L Albumin 2.6 L D Globulin 2.6 Albumin/Globulin Ratio 1.0 Triglycerides Cholesterol LDL Cholesterol Direct HDL Cholesterol Amylase Lipase TSH 3rd Generation 1.74 Venous Blood Potassium Serum Ketones Moderate 10/30/17 10/30/17 10/30/17 07:09 07:34 07:54 WBC 10.7 RBC 3.93 L Hgb 11.2 L Hct 33.0 L MCV 84.0 MCH 28.6 MCHC 34.1 RDW 14.5 Plt Count 202 MPV 9.6 Neut % (Auto) 84.4 H Lymph % (Auto) 9.9 L [place] % (Auto) 5.1 Eos % (Auto) 0.0 Baso % (Auto) 0.6 Neut # (Auto) 9.0 H Lymph # (Auto) 1.1 [place] # (Auto) 0.5 Eos # (Auto) 0.0 Baso # (Auto) 0.1 Neutrophils % (Manual) 84 H Band Neutrophils % 1 Lymphocytes % (Manual) 11 L Monocytes % (Manual) 4 Platelet Estimate Normal RBC Morphology Hypochromasia (manual) Slight Poikilocytosis (manual Slight Anisocytosis (manual) Slight pO2 VBG pH VBG pCO2 VBG HCO3 VBG Total CO2 VBG O2 Sat (Calc) VBG Base Excess VBG Potassium Glucose Lactate Sodium 149 H Potassium 3.5 L Chloride 115 H Carbon Dioxide 22 Anion Gap 15 BUN 15 Creatinine 0.9 Est GFR ( Amer) > 60 Est GFR (Non-Af Amer) > 60 POC Glucose (mg/dL) 216 H Random Glucose 236 H Hemoglobin A1c Calcium 7.6 L Phosphorus Magnesium Total Bilirubin 0.4 AST 30 ALT 31 Alkaline Phosphatase 58 Total Protein 5.2 L Albumin 2.7 L Globulin 2.6 Albumin/Globulin Ratio 1.0 Triglycerides Cholesterol LDL Cholesterol Direct HDL Cholesterol Amylase Lipase TSH 3rd Generation Venous Blood Potassium Serum Ketones Small 10/30/17 09:29 WBC RBC Hgb Hct MCV MCH MCHC RDW Plt Count MPV Neut % (Auto) Lymph % (Auto) [place] % (Auto) Eos % (Auto) Baso % (Auto) Neut # (Auto) Lymph # (Auto) [place] # (Auto) Eos # (Auto) Baso # (Auto) Neutrophils % (Manual) Band Neutrophils % Lymphocytes % (Manual) Monocytes % (Manual) Platelet Estimate RBC Morphology Hypochromasia (manual) Poikilocytosis (manual Anisocytosis (manual) pO2 VBG pH VBG pCO2 VBG HCO3 VBG Total CO2 VBG O2 Sat (Calc) VBG Base Excess VBG Potassium Glucose Lactate Sodium Potassium Chloride Carbon Dioxide Anion Gap BUN Creatinine Est GFR ( Amer) Est GFR (Non-Af Amer) POC Glucose (mg/dL) Random Glucose Hemoglobin A1c 13.7 H Calcium Phosphorus Magnesium Total Bilirubin AST ALT Alkaline Phosphatase Total Protein Albumin Globulin Albumin/Globulin Ratio Triglycerides Cholesterol LDL Cholesterol Direct HDL Cholesterol Amylase Lipase TSH 3rd Generation Venous Blood Potassium Serum Ketones Critical Care Progress Note - Nutrition Nutrition: Nutrition Category Date Time Status Liquid Diet [DIET] Diets 10/30/17 Breakfast Active Assessment/Plan - Assessment and Plan (Free Text) Assessment: Above patient seen and examined at bedside. Patient with long history of uncontrolled diabetes resulting in diabetic neuropathy, diabetic retinopathy and PVD (at risk of CAD) admitted to hospital with GI bleed and DKA. -DKA: resolved anion gap closed, restart home dosage of lantus 16 units at night and 6 units premeals -Bessie esphagitis: continue nystatin swish and swallow -HTN: start ACEI, lisnopril advance as BP tolerates -check and replace electrolytes -advance clear diet -avoid opoids which can prolonggastric time in light of diabetic gastropathy -continue DVT/PUD ppx Patient remains hemodynamically stable f/u post prandial glucose and correct as necessary -endocrin consult Patient verbalized understanding of current management - Date & Time Date: 10/30/17 Time: 10:56
[2017-10-30] MEDS: Potassium Chloride 20 mEq/15 ml LIQ UD PO SCH ×2 (12:00→18:47)
[2017-10-30] MEDS: (Novolog) Insulin Aspart, Recombinant 100 u/ml 10 ml vial SC SCH ×2 (12:25→17:19)
[2017-10-30] MEDS ORDERED: Morphine 4 MG/ML VIAL IVP STA (12:53)
[2017-10-30] MEDS ORDERED: Potassium Phosphate 15 MMOLE in Dextrose 5% In Water 250 ML IVPB ONE (17:44)
[2017-10-30] MEDS: Rosuvastatin Calcium 2.5 mg Tab PO SCH (21:52)
[2017-10-30] MEDS ORDERED: (Lantus) Insulin Glargine, Recombinant SC SCH ×2 (22:00→23:56)
--- NOTE | 2017-10-30 23:23 | CP.PCM.PN ---
Subjective - Date & Time of Evaluation Date of Evaluation: 10/30/17 Time of Evaluation: 18:00 - Subjective Subjective: Patient seen and examined at bedside. Per nursing no acute events overnight. States that he feels tingling in his left foot occasionally. Has not had a BM in two days, states this is normal. Anion gap closed, will discontinue insulin drip and start clear liquid diet. Objective - Vital Signs/Intake and Output Vital Signs (last 24 hours): Temp Pulse Resp BP Pulse Ox 99.3 F 106 H 20 181/89 H 100 10/30/17 20:00 10/30/17 20:00 10/30/17 20:00 10/30/17 20:00 10/30/17 20:00 Intake and Output: 10/30/17 10/31/17 18:59 06:59 Intake Total 2428.5 576 Output Total 1380 0 Balance 1048.5 576 - Medications Medications: Current Medications Ciprofloxacin (Cipro) 500 mg PO BID [facility] PRN Reason: Protocol Last Admin: 10/30/17 17:18 Dose: 500 mg Hydralazine HCl (Apresoline) 10 mg IVP STAT STA Stop: 10/30/17 23:23 Sodium Chloride (Sodium Chloride 0.45%) 1,000 mls @ 150 mls/hr IV .Q6H40M [facility] Last Admin: 10/30/17 21:35 Dose: Not Given Potassium Phosphate 15 mmole/ (Dextrose) 255 mls @ 42.5 mls/hr IVPB ONCE ONE Stop: 10/30/17 23:43 Last Admin: 10/30/17 18:56 Dose: 42.5 mls/hr Potassium Chloride (Potassium Chloride 10 Meq/100 Ml) 10 meq in 100 mls @ 100 mls/hr IVPB Q1H [facility] Stop: 10/30/17 23:59 Last Admin: 10/30/17 23:03 Dose: Not Given Insulin Aspart (Novolog) 6 unit SC ACTID [facility] Last Admin: 10/30/17 17:19 Dose: Not Given Insulin Glargine (Lantus) 16 unit SC HS [facility] Last Admin: 10/30/17 21:53 Dose: 16 u Lisinopril (Zestril) 2.5 mg PO DAILY [facility] Last Admin: 10/30/17 09:46 Dose: 2.5 mg Metoclopramide HCl (Reglan) 5 mg IVP Q6 [facility] Last Admin: 10/30/17 17:15 Dose: 5 mg Nystatin (Nystatin Oral Susp) 5 ml PO QID [facility] Last Admin: 10/30/17 21:53 Dose: 5 ml Ondansetron HCl (Zofran Inj) 4 mg IVP Q4H PRN PRN Reason: Nausea/Vomiting Last Admin: 10/30/17 12:36 Dose: 4 mg Pantoprazole Sodium (Protonix Inj) 40 mg IVP DAILY [facility] Last Admin: 10/30/17 09:45 Dose: 40 mg Pneumococcal Polyvalent Vaccine (Pneumovax 23 Vaccine) 0.5 ml IM .ONCE ONE Stop: 10/31/17 10:01 Rosuvastatin Calcium (Crestor) 2.5 mg PO HS [facility] Last Admin: 10/30/17 21:52 Dose: 2.5 mg Sertraline HCl (Zoloft) 100 mg PO DAILY [facility] Last Admin: 10/30/17 09:45 Dose: 100 mg - Labs Labs: 10/30/17 07:09 10/30/17 07:54 PT 9.5 SECONDS (9.7-12.2) L 10/28/17 11:32 INR 0.8 10/28/17 11:32 APTT 26 SECONDS (21-34) 10/28/17 11:32 Assessment and Plan (1) DKA (diabetic ketoacidoses) Status: Acute (2) Insulin dependent diabetes mellitus Status: Acute (3) Hyperglycemia Status: Acute
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
[2017-10-31] MEDS: Sodium Chloride 0.45% 1,000 ML IV SCH ×3 (02:46→10:04)
[2017-10-31 06:28] LABS: BASO # 0.1 K/uL (0.0-0.2); BASO % 0.7 % (0.0-2.0); EOS % 0.1 % (0.0-4.0); HEMOGLOBIN 11.9 g/dL (12.0-18.0); LYMPH # 2.2 K/uL (1.0-4.3); LYMPH % 22.6 % (20.0-40.0); MEAN CORPUSCULAR HEMOGLOBIN 28.9 pg (27.0-31.0); MEAN CORPUSCULAR HGB CONC 34.4 g/dL (33.0-37.0); MEAN PLATELET VOLUME 9.4 fL (7.2-11.7); MONO # 0.8 K/uL (0.0-0.8); MONO % 7.7 % (0.0-10.0); NEUT # 6.7 K/uL (1.8-7.0); NEUT % 68.9 % (50.0-75.0); RBC 4.11 Mil/uL (4.40-5.90); RED CELL DISTRIBUTION WIDTH 14.1 % (11.5-14.5); WHITE BLOOD COUNT 9.8 K/uL (4.8-10.8)
[2017-10-31 06:51] LABS: ALBUMIN 2.7 g/dL (3.5-5.0); ALT/SGPT 33 U/L (21-72); AST/SGOT 37 U/L (17-59); BLOOD UREA NITROGEN 11 mg/dL (9-20); CALCIUM 7.6 mg/dl (8.6-10.4); GFR AFRICAN-AMERICAN > 60; GFR NON-AFRICAN AMERICAN > 60
[2017-10-31] MEDS: (Novolin R) Insulin Human Regular 100 units/ml vial SC SCH ×7 (07:49→21:40)
[2017-10-31] MEDS ORDERED: Potassium Phosphate 15 MMOLE in Dextrose 5% In Water 250 ML IVPB ONE (09:08)
[2017-10-31] MEDS: Nystatin 100,000 Units/ml Oral Susp 5 ml UD PO SCH ×4 (09:44→21:28)
[2017-10-31] MEDS ORDERED: Potassium Chloride 20 mEq ER Tab PO ONE ×2 (10:00→16:00)
[2017-10-31] MEDS ORDERED: Pneumococcal 23-Valent Vaccine IM ONE (10:00)
--- NOTE | 2017-10-31 10:26 | CARD ---
APPROVED REPORT EKG Measurement Heart [id number] <Conclusion> Sinus tachycardia Minimal voltage criteria for LVH, may be normal variant T wave abnormality, consider anterior ischemia Abnormal ECG
[2017-10-31 14:58] VITALS: O2SAT 100
[2017-10-31] MEDS: Rosuvastatin Calcium 2.5 mg Tab PO SCH (21:28)
--- NOTE | 2017-10-31 23:45 | CP.PCM.PN ---
Subjective - Date & Time of Evaluation Date of Evaluation: 10/31/17 Time of Evaluation: 16:50 - Subjective Subjective: Pt seen and examined, DKA resolving Objective - Vital Signs/Intake and Output Vital Signs (last 24 hours): Temp Pulse Resp BP Pulse Ox 98.4 F 90 16 156/96 H 100 10/31/17 16:00 10/31/17 20:00 10/31/17 20:00 10/31/17 20:00 10/31/17 20:00 Intake and Output: 10/31/17 11/01/17 18:59 06:59 Intake Total 1200 Balance 1200 - Medications Medications: Current Medications Ciprofloxacin (Cipro) 500 mg PO BID [facility] PRN Reason: Protocol Last Admin: 10/31/17 18:32 Dose: 500 mg Famotidine (Pepcid) 40 mg PO DAILY [facility] Insulin Glargine (Lantus) 18 unit SC HS [facility] Last Admin: 10/31/17 21:28 Dose: 18 u Insulin Human Regular (Novolin R) 0 unit SC ACHS [facility] PRN Reason: Protocol Last Admin: 10/31/17 21:40 Dose: Not Given Insulin Human Regular (Novolin R) 3 unit SC TIDPC [facility] Last Admin: 10/31/17 18:33 Dose: Not Given Lisinopril (Zestril) 5 mg PO DAILY [facility] Metoclopramide HCl (Reglan) 5 mg IVP Q6 [facility] Last Admin: 10/31/17 23:37 Dose: Not Given Nystatin (Nystatin Oral Susp) 5 ml PO QID [facility] Last Admin: 10/31/17 21:28 Dose: 5 ml Ondansetron HCl (Zofran Inj) 4 mg IVP Q4H PRN PRN Reason: Nausea/Vomiting Last Admin: 10/31/17 10:51 Dose: 4 mg Rosuvastatin Calcium (Crestor) 2.5 mg PO HS [facility] Last Admin: 10/31/17 21:28 Dose: 2.5 mg Sertraline HCl (Zoloft) 100 mg PO DAILY [facility] Last Admin: 10/31/17 09:45 Dose: 100 mg - Labs Labs: 10/31/17 06:15 10/31/17 06:15 PT 9.5 SECONDS (9.7-12.2) L 10/28/17 11:32 INR 0.8 10/28/17 11:32 APTT 26 SECONDS (21-34) 10/28/17 11:32 Assessment and Plan (1) DKA (diabetic ketoacidoses) Assessment & Plan: hypoglycemia 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
[2017-11-01 04:14] VITALS: RESP 20
[2017-11-01 06:22] LABS: BASO % 0.3 % (0.0-2.0); EOS % 0.7 % (0.0-4.0); HEMOGLOBIN 11.9 g/dL (12.0-18.0); LYMPH # 1.6 K/uL (1.0-4.3); LYMPH % 24.7 % (20.0-40.0); MEAN CELL VOLUME 81.9 fL (80.0-94.0); MEAN CORPUSCULAR HEMOGLOBIN 27.6 pg (27.0-31.0); MEAN CORPUSCULAR HGB CONC 33.7 g/dL (33.0-37.0); MEAN PLATELET VOLUME 8.8 fL (7.2-11.7); MONO # 0.5 K/uL (0.0-0.8); MONO % 7.8 % (0.0-10.0); NEUT # 4.4 K/uL (1.8-7.0); NEUT % 66.5 % (50.0-75.0); NRBC % 0.1 % (0.0-2.0); RBC 4.33 Mil/uL (4.40-5.90); RED CELL DISTRIBUTION WIDTH 13.9 % (11.5-14.5); WHITE BLOOD COUNT 6.6 K/uL (4.8-10.8)
[2017-11-01 06:32] LABS: ALBUMIN 2.7 g/dL (3.5-5.0); ALT/SGPT 28 U/L (21-72); AST/SGOT 35 U/L (17-59); BLOOD UREA NITROGEN 8 mg/dL (9-20); CALCIUM 7.8 mg/dl (8.6-10.4); GFR AFRICAN-AMERICAN > 60; GFR NON-AFRICAN AMERICAN > 60
[2017-11-01] MEDS: (Novolin R) Insulin Human Regular 100 units/ml vial SC SCH ×4 (07:35→13:00)
[2017-11-01] MEDS: Nystatin 100,000 Units/ml Oral Susp 5 ml UD PO SCH ×2 (10:36→13:05)
[2017-11-01] MEDS ORDERED: Potassium Chloride 20 mEq ER Tab PO ONE (12:15)
--- NOTE | 2017-11-01 13:58 | CP.PCM.PN ---
Subjective - Date & Time of Evaluation Date of Evaluation: 11/01/17 Time of Evaluation: 13:58 - Subjective Subjective: PATIENT ADMITTED FOR GI BLEED AND HYPERGLYCEMIA DENIES NAUSEA AND VOMITING DENIES CHEST PAIN/ DIARRHEA OR SOB NO SIGN OF DISTRESS NOTED Objective - Vital Signs/Intake and Output Vital Signs (last 24 hours): Temp Pulse Resp BP Pulse Ox 98.2 F 95 H 20 155/78 H 100 11/01/17 10:41 11/01/17 10:41 11/01/17 10:41 11/01/17 10:41 11/01/17 10:41 - Medications Medications: Current Medications Ciprofloxacin (Cipro) 500 mg PO BID [facility] PRN Reason: Protocol Last Admin: 11/01/17 10:35 Dose: 500 mg Famotidine (Pepcid) 40 mg PO DAILY [facility] Last Admin: 11/01/17 10:35 Dose: 40 mg Insulin Glargine (Lantus) 18 unit SC [facility] Last Admin: 10/31/17 21:28 Dose: 18 u Insulin Human Regular (Novolin R) 0 unit SC ACHS [facility] PRN Reason: Protocol Last Admin: 11/01/17 13:00 Dose: 1 unit Insulin Human Regular (Novolin R) 3 unit SC TIDPC [facility] Last Admin: 11/01/17 13:00 Dose: Not Given Lisinopril (Zestril) 5 mg PO DAILY [facility] Last Admin: 11/01/17 10:34 Dose: 5 mg Metoclopramide HCl (Reglan) 5 mg IVP Q6 [facility] Last Admin: 11/01/17 12:00 Dose: Not Given Nystatin (Nystatin Oral Susp) 5 ml PO QID [facility] Last Admin: 11/01/17 13:05 Dose: Not Given Ondansetron HCl (Zofran Inj) 4 mg IVP Q4H PRN PRN Reason: Nausea/Vomiting Last Admin: 10/31/17 10:51 Dose: 4 mg Rosuvastatin Calcium (Crestor) 2.5 mg PO [facility] Last Admin: 10/31/17 21:28 Dose: 2.5 mg Sertraline HCl (Zoloft) 100 mg PO DAILY [facility] Last Admin: 11/01/17 10:35 Dose: 100 mg - Labs Labs: 11/01/17 06:13 11/01/17 06:13 PT 9.5 SECONDS (9.7-12.2) L 10/28/17 11:32 INR 0.8 10/28/17 11:32 APTT 26 SECONDS (21-34) 10/28/17 11:32 Assessment and Plan - Assessment and Plan (Free Text) Assessment: PATIENT SEEN AND EXAMINED AT THE BEDSIDE LUNG SOUND CLEAR [place] POSITIVE BOWEL SOUND ALL QUADRANT PATIENT TOLERATED DIABELTIC DIET LASTEST BS IS [address] DAVIS AND DEL VALLE WHO CLEAR PATIENT FOR DC FOLLOW UP WITH DR DAVIS AT HIS OFFICE 1-2 WEEKS ----CALL FOR APPOINTMENT FOLLOW UP WITH YOUR E[employer] FRAME TRUER (DR PRIDE) AT HIS OFFICE NEXT WEEK ---CALL FOR APPOINTMENT CONTINUE ALL YOUR HOME MEDICATION NEW PRESCRIPTION GIVEN ZESTRIL 5 MG BY MOUTH DAILY ACTIVITY TOLERATED CALL DR BHAKTA OR GO TO THE EMERGENCY ROOM IF SYMPTOMS RETURN OR WORSENING DISCUSS WITH PATIENT WHO AGREE AND VERBALIZED UNDERSTANDING
[2017-11-01 14:43] VITALS: BP 140/74; PULSE 88; TEMP 97.9
--- NOTE | 2017-11-01 22:50 | CP.PCM.DIS ---
Provider - Provider Date of Admission: 10/28/17 16:09 Attending physician: Aleksandar Harry MD Time Spent in preparation of Discharge (in minutes): 55 Diagnosis - Discharge Diagnosis (1) DKA (diabetic ketoacidoses) Status: Acute (2) Insulin dependent diabetes mellitus Status: Acute (3) Hyperglycemia Status: Acute Hospital Course - Lab Results Lab Results: Micro Results 10/28/17 16:30 Blood Blood Culture - Preliminary NO GROWTH AFTER 4 DAYS 10/28/17 16:30 Blood Blood Culture - Preliminary NO GROWTH AFTER 4 DAYS 10/29/17 15:23 Nose MRSA Culture (Admit) - Final MRSA NOT DETECTED 10/28/17 12:34 Urine Urine Culture - Final No Growth (<1,000 CFU/ML) Most Recent Lab Values WBC 6.6 K/uL (4.8-10.8) 11/01/17 06:13 RBC 4.33 Mil/uL (4.40-5.90) L 11/01/17 06:13 Hgb 11.9 g/dL (12.0-18.0) L 11/01/17 06:13 Hct 35.5 % (35.0-51.0) 11/01/17 06:13 MCV 81.9 fL (80.0-94.0) D 11/01/17 06:13 MCH 27.6 pg (27.0-31.0) 11/01/17 06:13 MCHC 33.7 g/dL (33.0-37.0) 11/01/17 06:13 RDW 13.9 % (11.5-14.5) 11/01/17 06:13 Plt Count 171 K/uL (130-400) 11/01/17 06:13 MPV 8.8 fL (7.2-11.7) 11/01/17 06:13 Neut % (Auto) 66.5 % (50.0-75.0) 11/01/17 06:13 Lymph % (Auto) 24.7 % (20.0-40.0) 11/01/17 06:13 [place] % (Auto) 7.8 % (0.0-10.0) 11/01/17 06:13 Eos % (Auto) 0.7 % (0.0-4.0) 11/01/17 06:13 Baso % (Auto) 0.3 % (0.0-2.0) 11/01/17 06:13 Neut # (Auto) 4.4 K/uL (1.8-7.0) 11/01/17 06:13 Lymph # (Auto) 1.6 K/uL (1.0-4.3) 11/01/17 06:13 [place] # (Auto) 0.5 K/uL (0.0-0.8) 11/01/17 06:13 Eos # (Auto) 0.0 K/uL (0.0-0.7) 11/01/17 06:13 Baso # (Auto) 0.0 K/uL (0.0-0.2) 11/01/17 06:13 Neutrophils % (Manual) 84 % (50-75) H 10/30/17 07:09 Band Neutrophils % 1 % (0-2) 10/30/17 07:09 Lymphocytes % (Manual) 11 % (20-40) L 10/30/17 07:09 Monocytes % (Manual) 4 % (0-10) 10/30/17 07:09 Platelet Estimate Normal (NORMAL) 10/30/17 07:09 RBC Morphology Normal 10/29/17 13:30 Hypochromasia (manual) Slight 10/30/17 07:09 Poikilocytosis (manual Slight 10/30/17 07:09 Anisocytosis (manual) Slight 10/30/17 07:09 PT 9.5 SECONDS (9.7-12.2) L 10/28/17 11:32 INR 0.8 10/28/17 11:32 APTT 26 SECONDS (21-34) 10/28/17 11:32 pO2 26 mm/Hg (30-55) L 10/29/17 15:18 VBG pH 7.27 (7.32-7.43) L 10/29/17 15:18 VBG pCO2 32 mmHg (40-60) L 10/29/17 15:18 VBG HCO3 14.7 mmol/L 10/29/17 15:18 VBG Total CO2 15.7 mmol/L (22-28) L 10/29/17 15:18 VBG O2 Sat (Calc) 59.4 % (40-65) 10/29/17 15:18 VBG Base Excess -11.0 mmol/L (0.0-2.0) L 10/29/17 15:18 VBG Potassium 3.8 mmol/L (3.6-5.2) 10/29/17 15:18 Sodium 147.0 mmol/l (132-148) 10/29/17 15:18 Chloride 113.0 mmol/L (98-107) H 10/29/17 15:18 Glucose 292 mg/dl (75-110) H 10/29/17 15:18 Lactate 1.3 mmol/L (0.7-2.1) 10/29/17 15:18 Crit Value Called To Enrique, 10/28/17 11:44 Crit Value Called By Atif [email or web address] 10/28/17 11:44 Crit Value Read Back Y 10/28/17 11:44 Blood Gas Notified Time 1155 10/28/17 11:44 Sodium 141 mmol/L (132-148) 11/01/17 06:13 Potassium 3.1 mmol/L (3.6-5.2) L 11/01/17 06:13 Chloride 104 mmol/L (98-107) 11/01/17 06:13 Carbon Dioxide 29 mmol/L (22-30) 11/01/17 06:13 Anion Gap 11 (10-20) 11/01/17 06:13 BUN 8 mg/dL (9-20) L 11/01/17 06:13 Creatinine 0.7 mg/dL (0.8-1.5) L 11/01/17 06:13 Est GFR ( Amer) > 60 11/01/17 06:13 Est GFR (Non-Af Amer) > 60 11/01/17 06:13 POC Glucose (mg/dL) 154 mg/dL (65-110) H 11/01/17 11:53 Random Glucose 100 mg/dL (75-110) 11/01/17 06:13 Hemoglobin A1c 13.7 % (4.2-6.5) H 10/30/17 09:29 Lactic Acid 1.7 mmol/L (0.7-2.1) 10/28/17 13:36 Calcium 7.8 mg/dl (8.6-10.4) L 11/01/17 06:13 Phosphorus 2.4 mg/dL (2.5-4.5) L 10/31/17 06:15 Magnesium 1.8 mg/dL (1.6-2.3) 10/31/17 06:15 Total Bilirubin 0.6 mg/dL (0.2-1.3) 11/01/17 06:13 AST 35 U/L (17-59) 11/01/17 06:13 ALT 28 U/L (21-72) 11/01/17 06:13 Alkaline Phosphatase 59 U/L (38-126) 11/01/17 06:13 Troponin I < 0.0120 ng/mL (0.00-0.120) 10/28/17 11:56 Total Protein 5.3 g/dL (6.3-8.3) L 11/01/17 06:13 Albumin 2.7 g/dL (3.5-5.0) L 11/01/17 06:13 Globulin 2.6 gm/dL (2.2-3.9) 11/01/17 06:13 Albumin/Globulin Ratio 1.0 (1.0-2.1) 11/01/17 06:13 Triglycerides 120 mg/dL (0-149) 10/29/17 18:13 Cholesterol 206 mg/dL (0-199) H 10/29/17 18:13 LDL Cholesterol Direct 131 mg/dL (0-129) H 10/29/17 18:13 HDL Cholesterol 50 mg/dL (30-70) 10/29/17 18:13 Amylase 141 U/L (30-110) H 10/29/17 13:30 Lipase 55 U/L (23-300) 10/29/17 13:30 TSH 3rd Generation 1.74 mIU/L (0.46-4.68) 10/30/17 02:09 Venous Blood Potassium 3.8 mmol/L (3.6-5.2) 10/29/17 15:18 Urine Color Colorless (YELLOW) 10/28/17 12:54 Urine Clarity Clear (Clear) 10/28/17 12:54 Urine pH 6.0 (5.0-8.0) 10/28/17 12:54 Ur Specific [place] 1.025 (1.003-1.030) 10/28/17 12:54 Urine Protein 3+ mg/dL (NEGATIVE) H 10/28/17 12:54 Urine Glucose (UA) 3+ mg/dL (Normal) H 10/28/17 12:54 Urine Ketones 2+ mg/dL (NEGATIVE) H 10/28/17 12:54 Urine Blood 1+ (NEGATIVE) H 10/28/17 12:54 Urine Nitrate Negative (NEGATIVE) 10/28/17 12:54 Urine Bilirubin Negative (NEGATIVE) 10/28/17 12:54 Urine Urobilinogen Normal mg/dL (0.2-1.0) 10/28/17 12:54 Ur Leukocyte Esterase Neg [place]/uL (Negative) 10/28/17 12:54 Urine WBC (Auto) < 1 /hpf (0-5) 10/28/17 12:54 Urine RBC (Auto) 3 /hpf (0-3) 10/28/17 12:54 Urine Bacteria Rare (<OCC) 10/28/17 12:54 Serum Ketones Small (NEGATIVE) 10/30/17 07:54 Blood Type O POSITIVE 10/28/17 16:34 Antibody Screen Negative 10/28/17 16:34 - Hospital Course Hospital Course: PT IS FOR DISCHARGE, HIS DKA HAS IMPROVED, HCO3 NORMAL, ANION GAP CLOSED, PT IS OVERALL FEELING BETTER PATIENT SEEN AND EXAMINED AT THE BEDSIDE LUNG SOUND CLEAR SA[place] POSITIVE BOWEL SOUND ALL QUADRANT PATIENT TOLERATED DIABELTIC DIET LASTEST BS IS 158 FOLLOW UP IN OFFICE 1-2 WEEKS ----CALL FOR APPOINTMENT FOLLOW UP WITH YOUR HAND SCREEN PRINTER (DR PRIDE) AT HIS OFFICE NEXT WEEK ---CALL FOR APPOINTMENT CONTINUE ALL YOUR HOME MEDICATION NEW PRESCRIPTION GIVEN ZESTRIL 5 MG BY MOUTH DAILY ACTIVITY TOLERATED GO TO THE EMERGENCY ROOM IF SYMPTOMS RETURN OR WORSENING DISCUSS WITH PATIENT WHO AGREE AND VERBALIZED UNDERSTANDING Discharge Exam - Head Exam Head Exam: ATRAUMATIC, NORMAL INSPECTION, NORMOCEPHALIC - Eye Exam Eye Exam: EOMI, Normal appearance, PERRL Pupil Exam: NORMAL ACCOMODATION, PERRL - ENT Exam ENT Exam: Mucous Membranes Moist - Respiratory Exam Respiratory Exam: Decreased Breath Sounds, NORMAL BREATHING PATTERN - Cardiovascular Exam Cardiovascular Exam: REGULAR RHYTHM, +S1, +S2 - GI/Abdominal Exam GI & Abdominal Exam: Normal Bowel Sounds - Rectal Exam Rectal Exam: Deferred Discharge Plan - Discharge Medications Prescriptions: Lisinopril [Zestril] 5 mg PO DAILY 30 Days tab - Follow Up Plan Condition: FAIR Disposition: HOME/ ROUTINE Instructions: Blood Glucose Monitoring, Diabetes and Diet, Diabetic Ketoacidosis (DC) Additional Instructions: FOLLOW UP WITH DR HARRY AT HIS OFFICE 1-2 WEEKS ----CALL FOR APPOINTMENT FOLLOW UP WITH YOUR HAND SCREEN PRINTER (DR PRIDE) AT HIS OFFICE NEXT WEEK ---CALL FOR APPOINTMENT CONTINUE ALL YOUR HOME MEDICATION NEW PRESCRIPTION GIVEN ZESTRIL 5 MG BY MOUTH DAILY ACTIVITY TOLERATED CALL DR BHAKTA OR GO TO THE EMERGENCY ROOM IF SYMPTOMS RETURN OR WORSENING Referrals: Nicho Ortiz MD [Staff Provider] - Aleksandar Harry MD [Staff Provider] -
== END 2017-11-01 14:39 | disposition home or self-care (01) | DRG 566 ==
LOC: C.ER 10:26 → EDBD 10:26 → C.9E 16:09 → C.3T 18:30 → C.9I 10-29 15:37
PROVIDERS: ADMIT Internal Medicine; ATTEND Internal Medicine
PROC: 0DB68ZX Excision of Stomach, Via Natural or Artificial Opening Endoscopic, Diagnostic (ICD-10-PCS; principal; 2017-10-29 11:05)
DX: E10.10 Type 1 diabetes mellitus with ketoacidosis without coma (principal); B37.81 Candidal esophagitis; E10.311 Type 1 diabetes mellitus with unspecified diabetic retinopathy with macular edema; E10.40 Type 1 diabetes mellitus with diabetic neuropathy, unspecified; E10.69 Type 1 diabetes mellitus with other specified complication; F41.9 Anxiety disorder, unspecified; I10 Essential (primary) hypertension; K29.00 Acute gastritis without bleeding; K31.9 Disease of stomach and duodenum, unspecified; K44.9 Diaphragmatic hernia without obstruction or gangrene; Z79.899 Other long term (current) drug therapy; Z79.4 Long term (current) use of insulin; Z87.891 Personal history of nicotine dependence